=== PATIENT | female | born 1945 | race Caucasian/White ===

== ENCOUNTER 2017-01-24 12:31 | Outpatient (CLI) | payer MEDICARE, OTHER ==
--- NOTE | 2017-01-24 17:08 | Ultrasound Report ---
PELVIC ULTRASOUND: 01/24/2017 CLINICAL INDICATION: Postmenopausal spotting. TECHNIQUE: Transabdominal pelvic ultrasound performed for global evaluation. Transvaginal pelvic ul trasound performed for detailed evaluation. Real-time scanning performed and static images obtained. The uterus is retroverted, measuring 6.3 x 5.7 x 3.7 cm. The endometrium is atrophic, measuring 2 mm . No focal myometrial lesion is seen. The ovaries are unremarkable, with the right measuring 1.8 x 1.4 x 1.1 cm, and the left measuring 2.1 x 1.2 x 0.9 cm. No free fluid is present. IMPRESSION: ATROPHIC ENDOMETRIUM. NORMAL OVARIES. JOB #: [id number] EXT JOB #:
== END 2017-01-24 12:32 | disposition home or self-care (01) ==
LOC: DI 12:31
PROVIDERS: ATTEND Internal Medicine
DX: N85.8 Other specified noninflammatory disorders of uterus (principal)
CPT/HCPCS: 76830; 76856

== ENCOUNTER 2017-05-04 18:44 | Emergency (ER) | payer MEDICARE, OTHER ==
--- NOTE | 2017-05-04 20:12 | ED Physician Documentation ---
PD HPI NVD - Stated complaint Stated Complaint: ABD PX - Chief complaint Chief Complaint: Abd Pain - History obtained from History obtained from: Patient - History of Present Illness Timing - onset: Today (this morning) Timing - duration: Hours Timing - details: Abrupt onset, Still present Associated symptoms: Abdominal pain (upper abd), Loss of appetite, Other (had nausea and vomiting and several loose stools. No noted blood in vomit nor stool. ). No: Hematemesis, Melena, Hematochezia, Near syncope / syncope Improved by: Position. No: Vomiting Worsened by: Eating, Position Similar symptoms before: Diagnosis (cholecystitis and opted for not having surgery once improved.) Recently seen: Not recently seen Review of Systems Constitutional: denies: Fever Nose: denies: Rhinorrhea / runny nose, Congestion Throat: denies: Sore throat Cardiac: denies: Chest pain / pressure, Palpitations Respiratory: denies: Dyspnea, Cough GI: reports: Abdominal Pain, Nausea, Vomiting, Diarrhea. denies: Abdominal Swelling : denies: Dysuria, Frequency, Vaginal bleeding Skin: denies: Rash Musculoskeletal: denies: Back pain Neurologic: reports: Generalized weakness. denies: Focal weakness, Near syncope Endocrine: denies: Weight loss, Easy bruising / bleeding Immunocompromised: denies: Immunocompromised PD PAST MEDICAL HISTORY - Past Medical History Cardiovascular: None Respiratory: None Neuro: None Endocrine/Autoimmune: HyPOthyroidism GI: Other : None HEENT: None Psych: Depression Musculoskeletal: None Derm: None - Past Surgical History Past Surgical History: Yes General: Colonoscopy HEENT: Other - Present Medications Home Medications: Ambulatory Orders Medication Instructions Recorded Confirmed Calcium Citrate/Vitamin D3 1 each PO BID 07/29/15 05/04/17 [Calcium Citrate +Vit D3 Tablet] Citalopram [CeleXA] 40 mg PO DAILY 07/29/15 05/04/17 LORazepam [Ativan] 0.5 mg PO HS 07/29/15 05/04/17 Levothyroxine Sodium [Levoxyl] 75 mcg PO DAILY 07/29/15 05/04/17 Dicyclomine [Bentyl] 10 mg PO QID PRN #15 capsule 05/04/17 Diphenoxylate HCl/Atropine 1 each PO Q6H PRN #12 tablet 05/04/17 [Diphenoxylate-Atrop 2.5-0.025] Ondansetron Odt [Zofran] 4 mg TL Q6H PRN #15 tablet 05/04/17 - Allergies Allergies/Adverse Reactions: Allergies Allergy/AdvReac Type Severity Reaction Status Date / Time iodine Allergy Anaphylaxis Verified 05/04/17 19:06 shellfish derived Allergy Anaphylaxis Verified 05/04/17 19:06 codeine AdvReac Nausea Verified 05/04/17 19:06 tetracycline AdvReac Nausea Verified 05/04/17 19:06 - Social History Does the pt smoke?: No Smoking Status: Never smoker Does the pt drink ETOH?: Yes Does the pt have substance abuse?: No - Immunizations Immunizations are current?: No Immunizations: TDAP >10years/unknown - POLST Patient has POLST: Yes PD ED PE NORMAL - Vitals Vital signs reviewed: Yes - General General: Alert and oriented X 3, Well developed/nourished, Other (appears in pain) - HEENT HEENT: PERRL (nonicteric), Pharynx benign - Neck Neck: Supple, no meningeal sign, No adenopathy - Cardiac Cardiac: RRR, No murmur - Respiratory Respiratory: No respiratory distress, Clear bilaterally - Abdomen Abdomen: Soft, Non distended, No organomegaly, Other (tender mid abd to epigastric, not particularly in RUQ. ) - Female Female : Deferred - Rectal Rectal: Deferred - Back Back: No CVA TTP - Derm Derm: Normal color, Warm and dry - Extremities Extremities: No tenderness to palpate, Normal ROM s pain, No edema, No calf tenderness / cord - Neuro Neuro: Alert and oriented X 3, No motor deficit, Normal speech Results - Vitals Vitals: Vital Signs - 24 hr 05/04/17 05/04/17 22:41 23:59 Temperature 36.7 C Heart Rate 64 55 L Respiratory 16 16 Rate Blood Pressure 145/85 H 136/75 H O2 Saturation 93 92 Oxygen O2 Source Room air - Labs Labs: Laboratory Tests 05/04/17 05/04/17 05/04/17 21:32 21:32 21:32 WBC 9.1 RBC 4.03 L Hgb 14.0 Hct 40.2 MCV 99.8 H MCH 34.9 H MCHC 34.9 RDW 12.6 Plt Count 189 MPV 9.0 Neut # 6.9 H Lymph # 1.4 L [place] # 0.8 Eos # 0.1 Baso # 0.0 Absolute Nucleated RBC 0.00 Nucleated RBC % 0.0 Sodium 139 Potassium 3.7 Chloride 100 L Carbon Dioxide 27 Anion Gap 12.0 BUN 26 H Creatinine 0.8 Estimated GFR (MDRD) 71 L Glucose 106 H Calcium 9.0 Total Bilirubin 1.0 AST 171 H ALT 94 H Alkaline Phosphatase 78 Troponin I < 0.04 Total Protein 7.0 Albumin 4.2 Globulin 2.8 Albumin/Globulin Ratio 1.5 Lipase 33 PD MEDICAL DECISION MAKING - ED course Complexity details: reviewed results (U/S shows known stones without signs of acute cholecystitis. Other labs are good. She says she did have MRI followup to prior U/S report done at to evaluate pancreas/GB, so would have evaluated prior known pancreatic cyst like seen on U/S. ), re-evaluated patient (feeling better with meds. ), considered differential (consider gall bladder colic with known prior stones. Also sounds like gastritis or viral GE. Less likely pancreatitis.), d/w patient Departure - Departure Disposition: 01 Home, Self Care Clinical Impression: Abdominal pain Qualifiers: Abdominal location: upper abdomen, unspecified Qualified Code(s): R10.10 - Upper abdominal pain, unspecified Condition: Stable Record reviewed to determine appropriate education?: Yes Instructions: ED Abdominal Pain Unkn Cause, ED Gastroenteritis Viral Follow-Up: Bethanie Bender MD [Primary Care Provider] - Prescriptions: Dicyclomine [Bentyl] 10 mg PO QID PRN #15 capsule PRN Reason: Spasms Diphenoxylate HCl/Atropine [Diphenoxylate-Atrop 2.5-0.025] 1 each PO Q6H PRN # 12 tablet PRN Reason: Diarrhea Ondansetron Odt [Zofran] 4 mg TL Q6H PRN #15 tablet PRN Reason: Nausea / Vomiting Comments: There is no sign of inflammation or swelling of the gallbladder at this time. There are gallstones still present which was expected. There is mention of a small cyst like area at the head of the pancreas that had been present before; discussed this with your primary care to see the results of that from the MRI you have had previously. Currently unlikely to presume a viral stomach virus with the pain vomiting and diarrhea. I would expect that to improve over a day or 2. Use ondansetron if needed for nausea, Bentyl or hydrocodone for pain. Use Lomotil if needed for diarrhea if that persists. Recheck if there is any worsening of symptoms or if you are not improved over 2 days. Discharge Date/Time: 05/05/17 00:14
[2017-05-04] MEDS ORDERED: ONDANSETRON 4 MG/2 ML VIAL IVP STA (20:29)
[2017-05-04] MEDS ORDERED: MAG HYDROX/AL HYDROX/SIMETH 30 ML UDC PO STA (20:29)
[2017-05-04] MEDS ORDERED: SODIUM CHLORIDE 0.9% 1,000 ML IV ONE (20:29)
[2017-05-04] MEDS ORDERED: KETOROLAC 60 MG/2 ML VIAL IVP STA (20:30)
[2017-05-04] MEDS ORDERED: MAG HYDROX/AL HYDROX/SIMETH 30 ML UDC ONE (20:46)
[2017-05-04] MEDS ORDERED: KETOROLAC 30 MG/ML VIAL ONE (20:46)
[2017-05-04] MEDS ORDERED: ONDANSETRON 4 MG/2 ML VIAL ONE (20:46)
[2017-05-04 21:41] LABS: BASOPHILS % (AUTO) 0.3 %; EOSINOPHILS # (AUTO) 0.1 10^3/uL (0.0-0.7); EOSINOPHILS % (AUTO) 0.7 %; HCT - HEMATOCRIT 40.2 % (37.0-47.0); LYMPHOCYTES # (AUTO) 1.4 10^3/uL (1.5-3.5); LYMPHOCYTES % (AUTO) 15.4 %; MEAN CORPUSCULAR HEMOGLOBIN 34.9 pg (27.0-31.0); MEAN CORPUSCULAR HGB CONC 34.9 g/dL (32.0-36.0); MEAN CORPUSCULAR VOLUME 99.8 fL (81.0-99.0); MONOCYTES # (AUTO) 0.8 10^3/uL (0.0-1.0); MONOCYTES % (AUTO) 8.3 %; NEUTROPHILS # (AUTO) 6.9 10^3/uL (1.5-6.6); NEUTROPHILS % (AUTO) 75.3 %; RED BLOOD COUNT 4.03 10^6/uL (4.20-5.40); RED CELL DISTRIBUTION WIDTH 12.6 % (12.0-15.0); UNCORRECTED WHITE BLOOD COUNT 9.1 x10^3/uL; WHITE BLOOD COUNT 9.1 x10^3/uL (4.8-10.8)
[2017-05-04 21:57] LABS: ALBUMIN/GLOBULIN RATIO 1.5 (1.0-2.2); CREATININE 0.8 mg/dL (0.4-1.0); POTASSIUM 3.7 mmol/L (3.5-5.0)
--- NOTE | 2017-05-04 22:08 | Ultrasound Preliminary Report ---
Exam: US ABDOMEN LIMITED IMPRESSION: 1. Cholelithiasis without evidence of acute cholecystitis or bile duct obstruction. 2. Interval increase in size of pancreatic head lesion. Dedicated pancreatic MRI or CT recommended fo r further characterization. 3. Stable mild right renal pelviectasis. [facility] SITE ID: [id number]
--- NOTE | 2017-05-04 22:11 | Ultrasound Report ---
EXAM: ABDOMEN ULTRASOUND LIMITED, RUQ EXAM DATE: 05/04/2017 09:44 PM. CLINICAL HISTORY: Upper abd pain and vomiting; h/o gallstones. COMPARISON: 08/22/2015 ultrasound. TECHNIQUE: Real-time scanning was performed with static images obtained. FINDINGS: Liver: Trace perihepatic fluid. No focal liver lesions. 14.7 cm. Main portal vein flow: Hepatopetal. Gallbladder: Numerous stones seen within the gallbladder. No gallbladder wall thickening or perichole cystic fluid collections. Biliary System: CBD measures 5 mm. No intrahepatic or extrahepatic ductal dilatation. Other: Mild right renal pelviectasis. There is a 2.2 x 1.1 x 1.8 cm hypoechoic lesion within the panc reatic head, previously 1.2 x 1.0 x 1.1 cm. The pancreatic duct measures 3 mm in diameter. IMPRESSION: 1. Cholelithiasis without evidence of acute cholecystitis or bile duct obstruction. 2. Interval increase in size of pancreatic head lesion. Dedicated pancreatic MRI or CT recommended fo r further characterization. 3. Stable mild right renal pelviectasis. [facility] Referring Provider Line: [phone] SITE ID: [id number]
[2017-05-04] MEDS ORDERED: HYDROcod/ACET 5/325 Prepack 6 PO ONE ×2 (22:57→23:05)
[2017-05-04] MEDS ORDERED: ONDANSETRON ODT 4 MG Prepack 2 TL PRN (22:57)
[2017-05-04] MEDS ORDERED: ONDANSETRON ODT 4 MG Prepack 2 TL ONE (23:05)
[2017-05-05 00:01] VITALS: BP 136/75
== END 2017-05-05 00:14 | disposition home or self-care (01) ==
LOC: ED 18:44
DX: K80.20 Calculus of gallbladder without cholecystitis without obstruction (principal); R10.10 Upper abdominal pain, unspecified; E03.9 Hypothyroidism, unspecified
CPT/HCPCS: 36415; 76705; 80053; 83690; 84484; 85025; 96361; 96374; 99283; A9270

== ENCOUNTER 2017-09-09 15:52 | Outpatient (CLI) | payer MEDICARE, OTHER ==
[2017-09-09 16:09] LABS: HGB - HEMOGLOBIN 14.2 g/dL (12.0-16.0); MEAN CORPUSCULAR HEMOGLOBIN 33.9 pg (27.0-31.0); MEAN CORPUSCULAR HGB CONC 34.2 g/dL (32.0-36.0); MEAN CORPUSCULAR VOLUME 99.3 fL (81.0-99.0); MEAN PLATELET VOLUME 8.3 fL (7.9-10.8); RED BLOOD COUNT 4.17 10^6/uL (4.20-5.40); RED CELL DISTRIBUTION WIDTH 12.7 % (12.0-15.0); WHITE BLOOD COUNT 5.2 x10^3/uL (4.8-10.8)
[2017-09-09 16:24] LABS: ALBUMIN 4.6 g/dL (3.2-5.5); ALKALINE PHOSPHATASE 68 IU/L (42-121); ALT ALANINE AMINOTRANSFERASE 15 IU/L (10-60); AST ASPARTATE AMINOTRANSFERASE 19 IU/L (10-42); BILIRUBIN,TOTAL 0.4 mg/dL (0.2-1.0); TOTAL PROTEIN 7.5 g/dL (6.7-8.2)
[2017-09-09 17:12] LABS: BILIRUBIN,DIRECT < 0.1 mg/dL (0.1-0.5)
== END 2017-09-09 15:53 | disposition home or self-care (01) ==
LOC: LAB 15:52
PROVIDERS: ATTEND Internal Medicine Gastroenterology
DX: E83.110 Hereditary hemochromatosis (principal)
CPT/HCPCS: 36415; 80076; 82728

== ENCOUNTER 2017-09-12 09:00 | Outpatient (CLI) | payer MEDICARE, OTHER | END 2017-09-12 09:01 | disposition home or self-care (01) | LOC: LAB.R 09:00 | PROVIDERS: ATTEND Internal Medicine | DX: R19.7 Diarrhea, unspecified (principal) | CPT/HCPCS: 81599; 83630; 87045; 87046; 87177; 87209; 87329; 87493 ==

== ENCOUNTER 2017-10-31 08:00 | Outpatient (CLI) | payer MEDICARE, OTHER | END 2017-10-31 08:01 | disposition home or self-care (01) | LOC: LAB.R 08:00 | PROVIDERS: ATTEND Internal Medicine | DX: R19.7 Diarrhea, unspecified (principal); A07.3 Isosporiasis | CPT/HCPCS: 87177; 87209 ==

== ENCOUNTER 2018-02-21 05:00 | Inpatient (IN) | payer MEDICARE, OTHER ==
[2018-02-21] MEDS ORDERED: ONDANSETRON 4 MG/2 ML VIAL IVP STA (05:09)
[2018-02-21] MEDS ORDERED: SODIUM CHLORIDE 0.9% 1,000 ML IV ONE (05:09)
[2018-02-21] MEDS ORDERED: MORPHINE 2 MG/ML CARPUJECT IVP STA (05:09)
--- NOTE | 2018-02-21 05:15 | ED Physician Documentation ---
PD HPI NVD - Stated complaint Stated Complaint: LOW ABD PAIN - Chief complaint Chief Complaint: Abd Pain - History obtained from History obtained from: Patient, Family - History of Present Illness Timing - onset: How many days ago (2) Timing - details: Gradual onset, Still present Associated symptoms: Abdominal pain. No: Fever Similar symptoms before: No diagnosis Recently seen: Not recently seen - Additonal information Additional information: Patient is a 72 year old female with a history of hemochromatosis who is presenting to the emergency department for nausea, vomiting, diarrhea and abdominal pain. Patient states that the symptoms have been going on for the last couple of days and have become progressively worse. Review of Systems Ten Systems: 10 systems reviewed and negative Constitutional: reports: Chills Cardiac: denies: Chest pain / pressure GI: reports: Abdominal Pain, Nausea, Vomiting, Diarrhea : denies: Dysuria, Frequency Neurologic: denies: Generalized weakness, Focal weakness Immunocompromised: denies: Immunocompromised PD PAST MEDICAL HISTORY - Past Medical History Cardiovascular: None Respiratory: None Endocrine/Autoimmune: HyPOthyroidism GI: Other : None HEENT: None Psych: Depression Musculoskeletal: None Derm: None - Past Surgical History Past Surgical History: Yes General: Colonoscopy HEENT: Other - Present Medications Home Medications: Ambulatory Orders Medication Instructions Recorded Confirmed Calcium Citrate/Vitamin D3 1 each PO BID 07/29/15 05/04/17 [Calcium Citrate +Vit D3 Tablet] Citalopram [CeleXA] 40 mg PO DAILY 07/29/15 05/04/17 LORazepam [Ativan] 0.5 mg PO HS 07/29/15 05/04/17 Levothyroxine Sodium [Levoxyl] 75 mcg PO DAILY 07/29/15 05/04/17 - Allergies Allergies/Adverse Reactions: Allergies Allergy/AdvReac Type Severity Reaction Status Date / Time iodine Allergy Anaphylaxis Verified 02/21/18 05:10 shellfish derived Allergy Anaphylaxis Verified 02/21/18 05:10 codeine AdvReac Nausea Verified 02/21/18 05:10 tetracycline AdvReac Nausea Verified 02/21/18 05:10 - Social History Does the pt smoke?: No Smoking Status: Never smoker Does the pt drink ETOH?: Yes Does the pt have substance abuse?: No - Immunizations Immunizations are current?: No Immunizations: TDAP >10years/unknown - POLST Patient has POLST: Yes PD ED PE NORMAL - Vitals Vital signs reviewed: Yes - General General: Alert and oriented X 3 - HEENT HEENT: Atraumatic - Respiratory Respiratory: No respiratory distress - Abdomen Abdomen: Soft - Derm Derm: Normal color, Warm and dry - Extremities Extremities: No deformity - Neuro Neuro: Alert and oriented X 3, No motor deficit, Normal speech Eye Opening: Spontaneous PD ED PE EXPANDED - General General: Alert, In Pain - HEENT HEENT: Dry mucous membranes - Abdomen Abdomen: Tender to palpation, Guarding, RLQ Results - Vitals Vitals: Vital Signs - 24 hr 02/21/18 02/21/18 02/21/18 05:04 05:38 06:10 Temperature 37.2 C Heart Rate 93 66 63 Respiratory 20 22 29 H Rate Blood Pressure 149/95 H 134/81 H 129/72 O2 Saturation 97 91 L 96 02/21/18 06:34 Temperature Heart Rate 60 Respiratory 22 Rate Blood Pressure 120/66 O2 Saturation 97 Oxygen O2 Source Nasal cannula Oxygen Flow Rate 2 - Labs Labs: Laboratory Tests 02/21/18 02/21/18 06:07 06:07 WBC 8.8 RBC 4.08 L Hgb 14.4 Hct 41.4 MCV 101.5 H MCH 35.3 H MCHC 34.7 RDW 12.6 Plt Count 176 MPV 9.0 Neut # (Auto) 7.3 H Lymph # (Auto) 0.8 L [place] # (Auto) 0.6 Eos # (Auto) 0.0 Baso # (Auto) 0.0 Absolute Nucleated RBC 0.00 Nucleated RBC % 0.0 Sodium 131 L Potassium 3.7 Chloride 100 L Carbon Dioxide 24 Anion Gap 7.0 BUN 14 Creatinine 0.8 Estimated GFR (MDRD) 71 L Glucose 133 H Calcium 8.7 Total Bilirubin 0.9 AST 27 ALT 18 Alkaline Phosphatase 64 Total Protein 7.1 Albumin 4.3 Globulin 2.8 Albumin/Globulin Ratio 1.5 Lipase 24 - Rads (name of study) ct abd pelvis Radiology: Final report received (acute appendicitis ) PD MEDICAL DECISION MAKING - ED course Complexity details: reviewed old records, reviewed results, re-evaluated patient, considered differential, d/w patient, d/w family, d/w hadoop consultant ED course: patient was seen and examined at bedside. IV access was gained and labs were drawn. patient was treated with morphine, zofran and ns bolus. imaging was ordered. when patient returned from imaging patient was still in pain and treated with dilaudid 1mg. Patient's CT revealed acute appendicits. tutoring clinician surgeon, Dr. Hawkins was contacted and the case was discussed with him. He stated he would take the patient to the or this morning. patient was started on zofran and pain was well controlled. - Sepsis Event Vital Signs: Vital Signs - 24 hr 02/21/18 02/21/18 02/21/18 05:04 05:38 06:10 Temperature 37.2 C Heart Rate 93 66 63 Respiratory 20 22 29 H Rate Blood Pressure 149/95 H 134/81 H 129/72 O2 Saturation 97 91 L 96 02/21/18 06:34 Temperature Heart Rate 60 Respiratory 22 Rate Blood Pressure 120/66 O2 Saturation 97 Oxygen O2 Source Nasal cannula Oxygen Flow Rate 2 Departure - Departure Disposition: ED Transfer to [facility] Clinical Impression: Appendicitis Condition: Stable
[2018-02-21 06:13] LABS: BASOPHILS % (AUTO) 0.3 %; EOSINOPHILS % (AUTO) 0.1 %; HGB - HEMOGLOBIN 14.4 g/dL (12.0-16.0); LYMPHOCYTES # (AUTO) 0.8 10^3/uL (1.5-3.5); LYMPHOCYTES % (AUTO) 9.4 %; MEAN CORPUSCULAR HEMOGLOBIN 35.3 pg (27.0-31.0); MEAN CORPUSCULAR HGB CONC 34.7 g/dL (32.0-36.0); MEAN CORPUSCULAR VOLUME 101.5 fL (81.0-99.0); MONOCYTES # (AUTO) 0.6 10^3/uL (0.0-1.0); MONOCYTES % (AUTO) 6.4 %; NEUTROPHILS # (AUTO) 7.3 10^3/uL (1.5-6.6); NEUTROPHILS % (AUTO) 83.8 %; PLT - PLATELET COUNT 176 10^3/uL (130-450); RED BLOOD COUNT 4.08 10^6/uL (4.20-5.40); RED CELL DISTRIBUTION WIDTH 12.6 % (12.0-15.0); WHITE BLOOD COUNT 8.8 x10^3/uL (4.8-10.8)
--- NOTE | 2018-02-21 06:15 | CT Report ---
Reason: abd pain, vomiting, contrast allergy Procedure Date: 02/21/2018 Accession Number: [id number] / [id number] Procedure: CT - Abdomen/Pelvis W/O CPT Code: FULL RESULT: EXAM: CT ABDOMEN AND PELVIS EXAM DATE: 02/21/2018 05:57 AM. CLINICAL HISTORY: Abdominal pain, vomiting, contrast allergy. COMPARISONS: None. TECHNIQUE: Routine helical CT imaging was performed through the abdomen and pelvis. IV contrast: None. Enteric contrast: No. Reconstructions: Coronal and sagittal. In accordance with CT protocol optimization, one or more of the following dose reduction techniques were utilized for this exam: automated exposure control, adjustment of mA and/or KV based on patient size, or use of iterative reconstructive technique. FINDINGS: Lung Bases: Bibasilar atelectasis or infiltrate. Small hiatal hernia. Trace pericardial effusion. Liver: No focal lesion identified on this noncontrast examination. Gallbladder/Bile Ducts: Status post cholecystectomy. Spleen: Normal. Pancreas: Normal. Adrenal Glands: Normal. Kidneys: Normal. No masses or hydronephrosis. Peritoneal Cavity/Bowel: Trace amount of free fluid in the pelvis. No bowel obstruction seen. No diverticulitis. No free air. No lymphadenopathy. Dilated inflamed appendix measuring 12 mm, with appendicolith. No periappendiceal abscess seen. Pelvic Organs: Normal. The bladder and visualized pelvic organs are within normal limits. Vasculature: Mild atherosclerosis. No aortic aneurysm. Bones: Osteopenia. Grade 1 degenerative spondylolisthesis at L4-L5. Other: None. IMPRESSION: 1. Appendicitis measuring 12 mm in diameter. No abscess seen. 2. Bibasilar atelectasis or infiltrate with small hiatal hernia and trace pericardial effusion. [facility]
[2018-02-21 06:24] LABS: ALBUMIN 4.3 g/dL (3.2-5.5); ALBUMIN/GLOBULIN RATIO 1.5 (1.0-2.2); BILIRUBIN,TOTAL 0.9 mg/dL (0.2-1.0); CALCIUM 8.7 mg/dL (8.5-10.3); CREATININE 0.8 mg/dL (0.4-1.0); TOTAL PROTEIN 7.1 g/dL (6.7-8.2)
[2018-02-21] MEDS ORDERED: HYDROmorphone 1 MG/ML CARPUJECT IVP STA (06:27)
[2018-02-21] MEDS ORDERED: PIPERACILLIN/TAZOBACTAM 3.375 GM in SODIUM CHLORIDE 0.9% MINIBAG 100 ML IV STA (06:47)
[2018-02-21] MEDS ORDERED: BUPIVACAINE 0.5% PF 30 ML VIAL ONE (08:02)
[2018-02-21 08:11] LABS: BILIRUBIN,URINE NEGATIVE (NEGATIVE); GLUCOSE, URINE (UA) NEGATIVE (NEGATIVE); KETONES,URINE (UA) NEGATIVE (NEGATIVE); LEUKOCYTE ESTERASE, URINE NEGATIVE (NEGATIVE); NITRITE,URINE NEGATIVE (NEGATIVE); OCCULT BLOOD,URINE NEGATIVE (NEGATIVE); PH,URINE 5.5 PH (5.0-7.5); PROTEIN,URINE NEGATIVE (NEGATIVE); UROBILINOGEN,URINE 0.2 (NORMAL) E.U./dL (NORMAL)
[2018-02-21 08:16] LABS: CLARITY,URINE CLEAR (CLEAR)
--- NOTE | 2018-02-21 08:28 | HISTORY & PHYSICAL EXAMINATION ---
DATE OF SERVICE: 02/21/2018 Physician: Scout Mccormick MD HISTORY OF PRESENT ILLNESS: A 72-year-old, white, female patient with right lower quadrant abdominal pain for about a day. She comes to the emergency room, where she was evaluated and found to have ac [place] appendicitis on physical examination and on CT scanning. She has a fecalith and an enlarged appe ndix. It was a noncontrasted CT because of an ALLERGY TO DYE. She has been appraised of the situati on and will have an open appendectomy. She understands and agrees. She has no sign of an abscess on CT scanning. Her white count is normal. PAST MEDICAL HISTORY: She has had a laparoscopic cholecystectomy within the past year and she has velasquez d some kind of sinus surgery, also about a year ago. No other surgical procedures. Denies diabetes, heart disease or hypertension. Takes no major medications at home. ALLERGIES: SHE IS ALLERGIC TO IV CONTRAST. REVIEW OF SYSTEMS CARDIOPULMONARY: Negative for exertional chest pain or unusual shortness of breath. GASTROINTESTINAL: As in HPI. GENITOURINARY: Negative. GYNECOLOGIC: Negative NEUROLOGIC: No strokes or seizures. PHYSICAL EXAMINATION VITAL SIGNS: She is afebrile at the moment. Blood pressure 138/72, heart rate in the 80s and regula r. EARS, NOSE, AND THROAT: Normal. NECK: No adenopathy. LUNGS: Clear with no rales or wheezes. HEART: Regular rate and rhythm. No murmur. ABDOMEN: Slightly distended and exquisitely tender in the right lower quadrant with positive rebound . She has a positive Rovsing sign. Remaining physical is unremarkable. DIAGNOSIS: Acute appendicitis, uncomplicated. PLAN: Appendectomy. TD: 02/21/2018 07:49
--- NOTE | 2018-02-21 08:59 | ANESTHESIA ---
Pre-Anesthesia VS, & Labs - Diagnosis appendicitis - Procedure appendectomy Vital Signs: Temp Pulse Resp BP Pulse Ox 37.0 C 78 16 118/68 96 02/21/18 07:03 02/21/18 07:43 02/21/18 07:43 02/21/18 07:43 02/21/18 07:43 Height 5 ft 2.5 in Weight (kg) 70.307 kg Body Mass Index 27.8 - NPO >8 hours - Is Patient ?: Not Applicable - Lab Results Fish Bones: 02/21/18 06:07 02/21/18 06:07 Home Medications and Allergies Home Medications: Ambulatory Orders Medication Instructions Recorded Confirmed Calcium Citrate/Vitamin D3 1 each PO BID 07/29/15 05/04/17 [Calcium Citrate +Vit D3 Tablet] Citalopram [CeleXA] 40 mg PO DAILY 07/29/15 05/04/17 LORazepam [Ativan] 0.5 mg PO HS 07/29/15 05/04/17 Levothyroxine Sodium [Levoxyl] 75 mcg PO DAILY 07/29/15 05/04/17 Allergies/Adverse Reactions: Allergies Allergy/AdvReac Type Severity Reaction Status Date / Time iodine Allergy Anaphylaxis Verified 02/21/18 05:10 shellfish derived Allergy Anaphylaxis Verified 02/21/18 05:10 codeine AdvReac Nausea Verified 02/21/18 05:10 tetracycline AdvReac Nausea Verified 02/21/18 05:10 Anes History & Medical History - Anesthetic History Anesthesia Complications: reports: No previous complications Family history of Anesthesia Complications: Denies Family history of Malignant Hyperthermia: Denies - Medical History Cardiovascular: reports: None Pulmonary: reports: None Gastrointestinal: reports: Other Urinary: reports: None Musculoskeletal: reports: None Endocrine/Autoimmune: reports: HyPOthyroidism Skin: reports: None Smoking Status: Never smoker Other Past Medical History: Hemocromatosis - Surgical History General: Colonoscopy Eyes Ears Nose Throat (EENT): Other Exam General: Alert, Oriented x3, Cooperative, No acute distress Dental: Other (implants, veneers) Mouth Openin Fingerbreadth Neck Mobility: Normal Mallampati classification: II Thyromental Distance: greater than 6 cm Respiratory: Lungs clear, Normal breath sounds, No respiratory distress, No accessory muscle use Cardiovascular: Regular rate, Normal S1, Normal S2, No murmurs Mental/Cognitive Status: Alert/Oriented X3, Normal for patient Cognitive Status: Within normal limits Plan Anesthesia Type: General Consent for Procedure(s) Verified and Reviewed: Yes Code Status: Attempt Resuscitation ASA classification: 2-Mild systemic disease Is this case an emergency?: No
[2018-02-21] MEDS ORDERED: LIDOCAINE-MPF 2% 5 ML VIAL IM ONE (10:15)
[2018-02-21] MEDS ORDERED: KETOROLAC 30 MG/ML VIAL IVP ONE (10:15)
[2018-02-21] MEDS ORDERED: ONDANSETRON 4 MG/2 ML VIAL IVP ONE (10:15)
[2018-02-21] MEDS ORDERED: ACETAMINOPHEN 1,000 MG/100 ML 100 ML IV ONE (10:15)
[2018-02-21] MEDS ORDERED: PROPOFOL 200 MG/20 ML VIAL IVP ONE (10:15)
[2018-02-21] MEDS ORDERED: DEXAMETHASONE 4 MG/ML VIAL IVP ONE (10:15)
[2018-02-21] MEDS ORDERED: MIDAZOLAM 2 MG/2 ML VIAL IVP ONE (10:15)
[2018-02-21] MEDS ORDERED: ROCURONIUM 50 MG/5 ML VIAL IVP ONE (10:15)
[2018-02-21] MEDS ORDERED: NEOSTIGMINE 1 MG/1 ML 10 ML MDV IVP ONE (10:15)
[2018-02-21] MEDS ORDERED: GLYCOPYRROLATE 1 MG/5 ML VIAL IVP ONE (10:15)
[2018-02-21] MEDS ORDERED: fentaNYL 250 MCG/5 ML VIAL IVP ONE (10:15)
[2018-02-21] MEDS ORDERED: BUPIVACAINE 0.5% PF 30 ML VIAL INFIL ONE (10:32)
[2018-02-21] MEDS ORDERED: LACTATED RINGERS 1,000 ML IV ONE ×3 (10:34→12:26)
[2018-02-21] MEDS ORDERED: SODIUM CHLORIDE FLUSH 0.9% 10 ML SYRINGE IVP PRN (10:44)
[2018-02-21] MEDS ORDERED: ACETAMINOPHEN 1,000 MG/100 ML 100 ML IV PRN (10:44)
[2018-02-21] MEDS: PIPERACILLIN/TAZOBACTAM 3.375 GM in SODIUM CHLORIDE 0.9% MINIBAG 100 ML IV SCH ×3 (11:52→18:53)
--- NOTE | 2018-02-21 13:51 | OPERATIVE REPORT ---
DATE OF SERVICE: 02/21/2018 Physician: Scout Mccormick MD PREOPERATIVE DIAGNOSIS: Acute appendicitis. POSTOPERATIVE DIAGNOSIS: Ruptured appendix with pelvic peritonitis. NAME OF PROCEDURE: Open appendectomy. SURGEON: Huey Mccormick MD. ANESTHESIA: General endotracheal. PROCEDURE: The patient was preoperatively identified during surgical pause under general endotrachea l anesthesia, prepped and draped in a sterile fashion, exposing the right lower quadrant of the abdom en. A Dwaine-Zach incision was made over McBurney's point. The oblique muscles split in the gridiro n fashion peritoneum, elevated, and entered, so as to avoid injury to the underlying structures. The patient had pelvic peritonitis with turbid and cloudy peritoneal fluid around the cecum. This was c ultured for aerobes and anaerobes. The cecum was rotated in the wound. The appendix was elevated. It was ruptured, and there was purulence noted around the mesoappendix. This was also cultured. The re was fibrin over the small bowel. The mesoappendix was divided between clamps. The appendiceal ve ssels were ligated with 2-0 Vicryl. The base of the appendix was stapled shut with a TA 30 stapler a nd the appendix then excised. The staple line in the cecum was secure and not bleeding. The cecum r otated back into the wound, back into the anatomic position, and the pelvis was then irrigated with s everal liters of sterile saline and aspirated dry until clear. The peritoneum was closed after a 10- mm Jorge drain was placed in the depths of the pelvis. Peritoneal closure was with 2-0 Vicryl. A Jorge-Desouza drain was brought out through the angle of the wound laterally. The fascia closed with 0 Vicryl. The subcutaneous irrigated with saline. The skin loosely stapled. The Jorge-Desouza kimberly in was sutured to the skin with a fine nylon. Sterile dressings applied. The procedure was very wel l tolerated. TD: 02/21/2018 11:03
[2018-02-21] MEDS: SODIUM CHLORIDE FLUSH 0.9% 10 ML SYRINGE IVP SCH (18:56)
[2018-02-21] MEDS: D5.45NS W/20 MEQ KCL 1,000 ML IV SCH (18:59)
[2018-02-21] MEDS: HYDROcod/ACETAM 5/325 MG TABLET PO PRN (19:34)
[2018-02-21] MEDS: FAMOTIDINE 20 MG TABLET PO SCH (21:10)
[2018-02-21] MEDS: LORazepam 0.5 MG TABLET PO PRN (21:11)
[2018-02-22] MEDS ORDERED: BENZOCAINE/MENTHOL LOZENGE MM PRN
[2018-02-22] MEDS: PIPERACILLIN/TAZOBACTAM 3.375 GM in SODIUM CHLORIDE 0.9% MINIBAG 100 ML IV SCH ×5 (00:01→23:26)
[2018-02-22] MEDS: HYDROcod/ACETAM 5/325 MG TABLET PO PRN ×4 (02:50→20:40)
[2018-02-22] MEDS: SODIUM CHLORIDE FLUSH 0.9% 10 ML SYRINGE IVP SCH ×3 (03:52→16:21)
[2018-02-22] MEDS: D5.45NS W/20 MEQ KCL 1,000 ML IV SCH ×3 (05:54→23:26)
[2018-02-22] MEDS: KETOROLAC 15 MG/ML VIAL IVP PRN ×2 (05:57→16:21)
[2018-02-22] MEDS: LEVOTHYROXINE 75 MCG TABLET PO SCH (06:05)
[2018-02-22] MEDS: POLYETHYLENE GLYCOL 3350 17 GM PACKET PO SCH (08:35)
[2018-02-22] MEDS: FAMOTIDINE 20 MG TABLET PO SCH ×2 (08:35→18:34)
[2018-02-22] MEDS: CITALOPRAM 10 MG TABLET PO SCH (08:35)
--- NOTE | 2018-02-22 11:48 | PROVIDER PROGRESS NOTE ---
Subjective - General Admit Date: 02/21/18 Procedure Date: 02/21/18 Post Op Days: 1 Procedure Performed: Open appendectomy with cultures - Review of Systems Wound/Incisions: positive: Healing well (Stapled widely with drain in place draining serosanguinous fluid.) Drain Type: Laci Drain Output Description: Serosanguinous Approximate mls Output: 90 General: positive: No symptoms HEENT: positive: No symptoms Pulmonary: positive: No symptoms Cardiovascular: positive: No symptoms Genitourinary: positive: No symptoms, Pain (Minimal.) Skin: positive: No symptoms Psychiatric: positive: No symptoms Objective - Patient Data Reviewed Vital Signs: Yes Vital Signs: Vital Signs x48h Temp Pulse Resp BP Pulse Ox 02/22/18 11:43 37.1 C 58 L 18 123/80 94 Weight: Weight 02/20/18 02/21/18 02/22/18 23:59 23:59 23:59 Weight (kg) 70.307 kg Intake & Output: Intake and Output Totals x24h 02/20/18 02/21/18 02/22/18 23:59 23:59 23:59 Intake Total 2068 1500 Output Total 670 90 Balance 1398 1410 - Lab Results Lab Results: 02/21/18 06:07 02/21/18 06:07 - Current Medications Current Medications: Current Medications Generic Name Dose Route Start Last Admin Trade Name Freq PRN Reason Stop Dose Admin Hydrocodone Bitart/Acetaminophen 1 tab 02/21/18 10:44 02/22/18 06:56 [place] 5/325 PO 1 tab Q4HR PRN Administration PAIN Citalopram Hydrobromide 40 mg 02/22/18 09:00 02/22/18 08:35 Celexa PO 40 mg DAILY ANGY Administration Famotidine 20 mg 02/21/18 21:00 02/22/18 08:35 Pepcid PO 20 mg BID ANGY Administration Piperacillin Sod/Tazobactam 100 mls @ 200 mls/hr 02/21/18 12:00 02/22/18 06:30 Sod 3.375 gm/ Sodium Chloride IV Infused Q6HR ANGY Infusion Potassium Chloride/Dextrose/Sod Cl 1,000 mls @ 100 mls/hr 02/21/18 19:00 02/22/18 05:54 D5.45ns W/20 Meq Kcl IV 100 mls/hr .Q10H ANGY Administration Ketorolac Tromethamine 15 mg 02/21/18 10:44 02/22/18 05:57 Toradol Inj (15mg) IVP 02/26/18 10:43 15 mg Q6H PRN Administration PAIN Levothyroxine Sodium 75 mcg 02/22/18 07:00 02/22/18 06:05 Synthroid PO 75 mcg QDAC ANGY Administration Lorazepam 0.5 mg 02/21/18 21:00 02/21/18 21:11 Ativan PO 0.5 mg QPM PRN Administration Anxiety Polyethylene Glycol 17 gm 02/22/18 09:00 02/22/18 08:35 Miralax PO Not Given DAILY ANGY Sodium Chloride 10 ml 02/21/18 17:00 02/22/18 08:36 Normal Saline Flush 0.9% IVP Not Given 0100,0900,1700 ANGY Throat Lozenges 1 lozenge 02/22/18 00:00 02/22/18 00:11 Cepacol MM 1 lozenge Q2HR PRN Administration Throat pain - Physical Exam Wound/Incisions: positive: Healing well (Widely spaced isrrael.). negative: Drainage, Erythema General Appearance: positive: No acute distress Eyes Bilateral: positive: No lid inflammation, Conjunctivae nml, No scleral icterus ENT: positive: No signs of dehydration Neck: positive: Trachea midline Respiratory: positive: Chest non-tender, No respiratory distress, Breath sounds nml Cardiovascular: positive: Regular rate & rhythm Abdomen: positive: Tenderness (Minimal.) Skin: positive: Color nml Extremities: positive: Nml appearance Neurologic/Psychiatric: positive: Oriented x3 ABX Reporting Has patient been on IV antibiotics over the past 48 hours?: Yes Impression/Plan - Problem List Problem List: D1 s/p open appeendectomy for ruptured appendicitis 1) FEN Advance to general diet. Minimize IVF. 2) ID Patient currently receiving Zosyn for ruptured appendicitis. Appropriate coverage. No CBC or CMP ordered for today. No fever. Consider switch to oral agents tomorrow AM. 3) DVT Continued prophylaxis. Patient to walk as much as possible.
[2018-02-22] MEDS: ONDANSETRON 4 MG/2 ML VIAL IVP PRN (16:21)
[2018-02-22] MEDS: LORazepam 0.5 MG TABLET PO PRN (20:40)
[2018-02-23] MEDS: SODIUM CHLORIDE FLUSH 0.9% 10 ML SYRINGE IVP SCH ×3 (00:23→16:51)
[2018-02-23] MEDS: HYDROcod/ACETAM 5/325 MG TABLET PO PRN ×2 (00:23→06:53)
[2018-02-23] MEDS: PIPERACILLIN/TAZOBACTAM 3.375 GM in SODIUM CHLORIDE 0.9% MINIBAG 100 ML IV SCH ×3 (06:16→17:40)
[2018-02-23] MEDS: ONDANSETRON 4 MG/2 ML VIAL IVP PRN ×2 (06:17→21:33)
[2018-02-23] MEDS: LEVOTHYROXINE 75 MCG TABLET PO SCH (06:17)
[2018-02-23 07:04] LABS: BASOPHILS # (AUTO) 0.1 10^3/uL (0.0-0.1); BASOPHILS % (AUTO) 0.6 %; EOSINOPHILS # (AUTO) 0.3 10^3/uL (0.0-0.7); EOSINOPHILS % (AUTO) 3.2 %; HGB - HEMOGLOBIN 13.4 g/dL (12.0-16.0); LYMPHOCYTES # (AUTO) 2.2 10^3/uL (1.5-3.5); LYMPHOCYTES % (AUTO) 23.9 %; MEAN CORPUSCULAR HEMOGLOBIN 35.2 pg (27.0-31.0); MEAN CORPUSCULAR HGB CONC 34.3 g/dL (32.0-36.0); MEAN CORPUSCULAR VOLUME 102.5 fL (81.0-99.0); MEAN PLATELET VOLUME 8.9 fL (7.9-10.8); MONOCYTES # (AUTO) 0.6 10^3/uL (0.0-1.0); MONOCYTES % (AUTO) 6.2 %; NEUTROPHILS % (AUTO) 66.1 %; PLT - PLATELET COUNT 189 10^3/uL (130-450); RED BLOOD COUNT 3.81 10^6/uL (4.20-5.40); RED CELL DISTRIBUTION WIDTH 12.8 % (12.0-15.0)
[2018-02-23] MEDS: CITALOPRAM 10 MG TABLET PO SCH (08:37)
[2018-02-23] MEDS: FAMOTIDINE 20 MG TABLET PO SCH ×2 (08:37→21:34)
[2018-02-23] MEDS: POLYETHYLENE GLYCOL 3350 17 GM PACKET PO SCH ×2 (08:39→19:49)
--- NOTE | 2018-02-23 09:08 | PROVIDER PROGRESS NOTE ---
Subjective - General Admit Date: 02/21/18 Procedure Date: 02/21/18 Post Op Days: 2 Procedure Performed: Open appendectomy with cultures - Review of Systems Wound/Incisions: positive: Healing well (Widely spaced [place].). negative: Drainage, Erythema Drain Type: Laci Drain Output Description: Serous Approximate mls Output: 327 General: positive: No symptoms HEENT: positive: No symptoms Pulmonary: positive: No symptoms Cardiovascular: positive: No symptoms Genitourinary: positive: No symptoms, Pain (Minimal.) Skin: positive: No symptoms Psychiatric: positive: No symptoms Objective - Patient Data Reviewed Vital Signs: Yes Vital Signs: Vital Signs x48h Temp Pulse Resp BP Pulse Ox 02/23/18 08:17 36.9 C 59 L 16 135/81 H 95 Weight: Weight 02/21/18 02/22/18 02/23/18 23:59 23:59 23:59 Weight (kg) 70.307 kg Intake & Output: Intake and Output Totals x24h 02/21/18 02/22/18 02/23/18 23:59 23:59 23:59 Intake Total 2068 4014.167 250 Output Total 670 375 327 Balance 1398 3639.167 -77 - Lab Results Lab Results: 02/23/18 06:45 02/21/18 06:07 Other Lab Results: Lab Results x24hrs 02/23/18 Range/Units 06:45 WBC 9.0 (4.8-10.8) x10^3/uL RBC 3.81 L (4.20-5.40) 10^6/uL Hgb 13.4 (12.0-16.0) g/dL Hct 39.0 (37.0-47.0) % MCV 102.5 H (81.0-99.0) fL MCH 35.2 H (27.0-31.0) pg MCHC 34.3 (32.0-36.0) g/dL RDW 12.8 (12.0-15.0) % Plt Count 189 (130-450) 10^3/uL MPV 8.9 (7.9-10.8) fL Neut # (Auto) 6.0 (1.5-6.6) 10^3/uL Lymph # (Auto) 2.2 (1.5-3.5) 10^3/uL [place] # (Auto) 0.6 (0.0-1.0) 10^3/uL Eos # (Auto) 0.3 (0.0-0.7) 10^3/uL Baso # (Auto) 0.1 (0.0-0.1) 10^3/uL Absolute Nucleated RBC 0.01 x10^3/uL Nucleated RBC % 0.1 /100WBC - Current Medications Current Medications: Current Medications Generic Name Dose Route Start Last Admin Trade Name Freq PRN Reason Stop Dose Admin Hydrocodone Bitart/Acetaminophen 1 tab 02/21/18 10:44 02/23/18 06:53 [place] 5/325 PO 1 tab Q4HR PRN Administration PAIN Citalopram Hydrobromide 40 mg 02/22/18 09:00 02/23/18 08:37 Celexa PO 40 mg DAILY ANGY Administration Famotidine 20 mg 02/21/18 21:00 02/23/18 08:37 Pepcid PO 20 mg BID ANGY Administration Piperacillin Sod/Tazobactam 100 mls @ 200 mls/hr 02/21/18 12:00 02/23/18 06:16 Sod 3.375 gm/ Sodium Chloride IV 200 mls/hr Q6HR ANGY Administration Potassium Chloride/Dextrose/Sod Cl 1,000 mls @ 50 mls/hr 02/22/18 11:55 02/22/18 23:26 D5.45ns W/20 Meq Kcl IV 50 mls/hr .Q20H ANGY Administration Ketorolac Tromethamine 15 mg 02/21/18 10:44 02/22/18 16:21 Toradol Inj (15mg) IVP 02/26/18 10:43 15 mg Q6H PRN Administration PAIN Levothyroxine Sodium 75 mcg 02/22/18 07:00 02/23/18 06:17 Synthroid PO 75 mcg QDAC ANGY Administration Lorazepam 0.5 mg 02/21/18 21:00 02/22/18 20:40 Ativan PO 0.5 mg QPM PRN Administration Anxiety Ondansetron HCl 4 mg 02/21/18 10:44 02/23/18 06:17 Zofran Inj IVP 4 mg Q6H PRN Administration Nausea / Vomiting Polyethylene Glycol 17 gm 02/22/18 09:00 02/23/18 08:39 Miralax PO Not Given DAILY ANGY Sodium Chloride 10 ml 02/21/18 17:00 02/23/18 08:40 Normal Saline Flush 0.9% IVP Not Given 0100,0900,1700 NAGY Sodium Chloride 10 ml 02/21/18 10:44 02/23/18 06:17 Normal Saline Flush 0.9% IVP 10 ml PRN PRN Administration NEEDED PER PROVIDER ORDERS Throat Lozenges 1 lozenge 02/22/18 00:00 02/22/18 00:11 Cepacol MM 1 lozenge Q2HR PRN Administration Throat pain - Physical Exam General Appearance: positive: No acute distress Eyes Bilateral: positive: No lid inflammation, Conjunctivae nml, No scleral icterus ENT: positive: No signs of dehydration Neck: positive: Trachea midline Respiratory: positive: Chest non-tender, No respiratory distress, Breath sounds nml Cardiovascular: positive: Regular rate & rhythm Abdomen: positive: Nml bowel sounds, No distention Skin: positive: Color nml Extremities: positive: Nml appearance Neurologic/Psychiatric: positive: Oriented x3 Impression/Plan - Problem List Problem List: D2 s/p open appeendectomy for ruptured appendicitis 1) FEN Advance to general diet. Minimize IVF. 2) ID Patient currently receiving Zosyn for ruptured appendicitis. Appropriate coverage. CBC shows no elevated WBC and no left shift. Switch to oral antibiotics. 3) DVT Continued prophylaxis. Patient to walk as much as possible. 4) Pain Oral agents only.
[2018-02-23] MEDS: SACCHAROMYCES BOULARDII 250 MG CAPSULE PO SCH (17:40)
[2018-02-23] MEDS: IBUPROFEN 600 MG TABLET PO PRN (17:42)
[2018-02-23] MEDS: LORazepam 0.5 MG TABLET PO PRN (21:33)
[2018-02-23] MEDS: D5.45NS W/20 MEQ KCL 1,000 ML IV SCH (21:40)
[2018-02-23] MEDS: CIPROFLOXACIN 250 MG TABLET PO SCH (21:41)
[2018-02-24] MEDS: SODIUM CHLORIDE FLUSH 0.9% 10 ML SYRINGE IVP SCH ×2 (02:02→08:19)
[2018-02-24] MEDS: LEVOTHYROXINE 75 MCG TABLET PO SCH (06:19)
[2018-02-24] MEDS: metroNIDAZOLE 250 MG TABLET PO SCH ×2 (06:22→13:08)
[2018-02-24] MEDS: IBUPROFEN 600 MG TABLET PO PRN (08:18)
[2018-02-24] MEDS: SACCHAROMYCES BOULARDII 250 MG CAPSULE PO SCH ×2 (08:18→18:25)
[2018-02-24] MEDS: CITALOPRAM 10 MG TABLET PO SCH (08:19)
[2018-02-24] MEDS: CIPROFLOXACIN 250 MG TABLET PO SCH (08:19)
[2018-02-24] MEDS: FAMOTIDINE 20 MG TABLET PO SCH (08:19)
[2018-02-24] MEDS: HYDROcod/ACETAM 5/325 MG TABLET PO PRN ×2 (12:28→18:21)
--- NOTE | 2018-02-24 18:55 | Discharge Plan ---
Discharge Plan Disposition: Home, Self Care Condition: Good Prescriptions: HYDROcod/ACETAM 5/325 [[place] 5/325] 1 tab PO Q4HR PRN #10 tablet PRN Reason: Pain Ciprofloxacin [Cipro] 250 mg PO BID #14 tablet Diet: Regular Activity Restrictions: No Restrictions Shower Restrictions: No Driving Restrictions: Yes (Until seen in office.) Weight Bearing: Full Weight Additional Instructions or Follow Up instructions: Call me with any surgical questions or concerns No Smoking: If you smoke, Please STOP! Call for help. Follow-up with: Bethanie Bender MD [Primary Care Provider] - Zia Oliva MD [Provider Admit Priv/Credential] -
--- NOTE | 2018-02-24 19:08 | DISCHARGE SUMMARY ---
"Discharge Summary Admit Date: 02/21/18 Discharge Date: 02/24/18 Discharging Provider: Dr. Zia Oliva Code Status: Attempt Resuscitation Condition at Discharge: Good Discharge Disposition: 01 Home, Self Care - DIAGNOSES Admission Diagnoses: Acute appendicitis Discharge Diagnoses with Status of Each Condition: Acute purulent appendicitis resolved with surgical resection - HPI History of Present Illness: 72 year old normally healthy female with classic presentation of acute appendicitis promptly taken to OR by Dr. Mccormick who performed an open appendectomy and placement of drain - CONSULTS | PROCEDURES Consultations: Dr. Mccormick Procedures: Appendectomy and placement of drain - HOSPITAL COURSE Hospital Course: Uncomplicated. - ALLERGIES Allergies/Adverse Reactions: Allergies Allergy/AdvReac Type Severity Reaction Status Date / Time iodine Allergy Anaphylaxis Verified 02/21/18 05:10 shellfish derived Allergy Anaphylaxis Verified 02/21/18 05:10 codeine AdvReac Nausea Verified 02/21/18 05:10 metronidazole [From Flagyl] AdvReac Nausea Verified 02/23/18 21:35 tetracycline AdvReac Nausea Verified 02/21/18 05:10 - MEDICATIONS Home Medications: Ambulatory Orders Medication Instructions Recorded Confirmed Citalopram [CeleXA] 40 mg PO DAILY 07/29/15 02/21/18 LORazepam [Ativan] 0.5 mg PO QPM 07/29/15 02/21/18 Levothyroxine Sodium [Levoxyl] 75 mcg PO QDAC 07/29/15 02/21/18 Ciprofloxacin [Cipro] 250 mg PO BID #14 tablet 02/24/18 HYDROcod/ACETAM 5/325 [[place] 5/325] 1 tab PO Q4HR PRN #10 tablet 02/24/18 LORazepam [Ativan] 0.5 mg PO QPM PRN tablet 02/24/18 Levothyroxine [Synthroid] 75 mcg PO QDAC tablet 02/24/18 - PHYSICAL EXAM AT DISCHARGE General Appearance: positive: No acute distress Eyes Bilateral: positive: No lid inflammation, Conjunctivae nml, No scleral icterus ENT: positive: No signs of dehydration Neck: positive: Trachea midline Respiratory: positive: Chest non-tender, No respiratory distress, Breath sounds nml Cardiovascular: positive: Regular rate & rhythm Abdomen: positive: Nml bowel sounds, No distention, Other (Drain removed and patient tolerated well.) Skin: positive: Color nml Extremities: positive: Non-tender, Nml appearance Neurologic/Psychiatric: positive: Oriented x3 - LABS Result Diagrams: 02/23/18 06:45 02/21/18 06:07 - FOLLOW UP Follow Up: Dr. Zia Oliva for wound check and staple removal in 7-10 days - TIME SPENT Time Spent in Discharge (Minutes): 45"
[2018-02-24 19:24] VITALS: BP 156/79
--- NOTE | 2018-03-10 16:56 | HISTORY & PHYSICAL EXAMINATION ---
History - Past Medical History Cardiovascular: reports: None Respiratory: reports: None Endocrine/Autoimmune: reports: HyPOthyroidism GI: reports: Other : reports: None HEENT: reports: None Psych: reports: Depression Musculoskeletal: reports: None Derm: reports: None MRSA Hx?: No Other Past Medical History: Hemocromatosis - Past Surgical History General: reports: Colonoscopy HEENT: reports: Other - POLST Patient has POLST: Yes Meds/Allgy - Home Medications Home Medications: Ambulatory Orders Medication Instructions Recorded Confirmed Citalopram [CeleXA] 40 mg PO DAILY 07/29/15 02/21/18 LORazepam [Ativan] 0.5 mg PO QPM 07/29/15 02/21/18 Levothyroxine Sodium [Levoxyl] 75 mcg PO QDAC 07/29/15 02/21/18 Ciprofloxacin [Cipro] 250 mg PO BID #14 tablet 02/24/18 HYDROcod/ACETAM 5/325 [[place] 5/325] 1 tab PO Q4HR PRN #10 tablet 02/24/18 LORazepam [Ativan] 0.5 mg PO QPM PRN tablet 02/24/18 Levothyroxine [Synthroid] 75 mcg PO QDAC tablet 02/24/18 - Allergies Allergies/Adverse Reactions: Allergies Allergy/AdvReac Type Severity Reaction Status Date / Time iodine Allergy Anaphylaxis Verified 02/21/18 05:10 shellfish derived Allergy Anaphylaxis Verified 02/21/18 05:10 codeine AdvReac Nausea Verified 02/21/18 05:10 metronidazole [From Flagyl] AdvReac Nausea Verified 02/23/18 21:35 tetracycline AdvReac Nausea Verified 02/21/18 05:10 Conclusion/Plan - Lab Results Fish Bones: 02/23/18 06:45 02/21/18 06:07
== END 2018-02-24 20:06 | disposition home or self-care (01) | DRG 340 ==
LOC: ED 05:00 → SDS 07:42 → MS2 10:44
PROVIDERS: ADMIT Surgery; ATTEND Surgery
PROC: 0DTJ0ZZ Resection of Appendix, Open Approach (ICD-10-PCS; principal; 2018-02-21 11:00)
DX: K37 Unspecified appendicitis (principal); K35.2 Acute appendicitis with generalized peritonitis; E03.9 Hypothyroidism, unspecified
CPT/HCPCS: 36415; 74176; 80053; 81001; 81003; 81599; 83690; 85025; 87070; 87077; 87086; 87181; 87205; 96361; 96365; 96375; 99284; 99285

== ENCOUNTER 2018-04-07 13:01 | Outpatient (CLI) | payer MEDICARE, OTHER | END 2018-04-07 13:02 | disposition home or self-care (01) | LOC: SC 13:01 | PROVIDERS: ATTEND Internal Medicine Pulmonary Disease | DX: G47.30 Sleep apnea, unspecified (principal); G47.10 Hypersomnia, unspecified; G47.8 Other sleep disorders; R06.83 Snoring; R41.89 Other symptoms and signs involving cognitive functions and awareness | CPT/HCPCS: 99203; G0463; 99212 ==

== ENCOUNTER 2018-04-25 14:16 | Outpatient (CLI) | payer MEDICARE, OTHER ==
[2018-04-25 14:40] LABS: HGB - HEMOGLOBIN 14.5 g/dL (12.0-16.0); MEAN CORPUSCULAR HEMOGLOBIN 35.1 pg (27.0-31.0); MEAN CORPUSCULAR HGB CONC 35.4 g/dL (32.0-36.0); MEAN CORPUSCULAR VOLUME 99.1 fL (81.0-99.0); MEAN PLATELET VOLUME 8.5 fL (7.9-10.8); RED BLOOD COUNT 4.12 10^6/uL (4.20-5.40); RED CELL DISTRIBUTION WIDTH 12.5 % (12.0-15.0); WHITE BLOOD COUNT 6.4 x10^3/uL (4.8-10.8)
[2018-04-25 14:50] LABS: ALBUMIN 4.4 g/dL (3.2-5.5); BILIRUBIN,DIRECT 0.1 mg/dL (0.1-0.5); TOTAL PROTEIN 7.3 g/dL (6.7-8.2)
== END 2018-04-25 14:17 | disposition home or self-care (01) ==
LOC: LAB 14:16
DX: E83.110 Hereditary hemochromatosis (principal)
CPT/HCPCS: 36415; 80076; 82728; 85027

== ENCOUNTER 2018-05-18 20:30 | Outpatient (CLI) | payer MEDICARE, OTHER | END 2018-05-18 20:31 | disposition home or self-care (01) | LOC: SC 20:30 | PROVIDERS: ATTEND Internal Medicine Pulmonary Disease | DX: G47.33 Obstructive sleep apnea (adult) (pediatric) (principal) | CPT/HCPCS: 95810 ==

== ENCOUNTER 2018-06-30 12:48 | Outpatient (CLI) | payer MEDICARE, OTHER | END 2018-06-30 12:49 | disposition home or self-care (01) | LOC: SC 12:48 | PROVIDERS: ATTEND Nurse Practitioner Family | DX: G47.33 Obstructive sleep apnea (adult) (pediatric) (principal) | CPT/HCPCS: 99215; G0463; 99212 ==

== ENCOUNTER 2018-09-05 12:15 | Emergency (ER) | payer MEDICARE, OTHER ==
[2018-09-05 12:28] VITALS: BP 130/82
[2018-09-05] MEDS ORDERED: LIDOCAINE 1% 2 ML VIAL SUBQ STA (13:26)
--- NOTE | 2018-09-05 13:49 | ED Physician Documentation ---
PD HPI UPPER EXT INJURY - Stated complaint Stated Complaint: L FINGER LAC - Chief complaint Chief Complaint: Laceration - History obtained from History obtained from: Patient - History of Present Illness Location: Left, Finger (4th) Type of injury: Laceration (scissors) Where injury occurred: Home Timing - onset: How many hours ago (1) Timing - duration: Hours (1) Timing - details: Abrupt onset Pain level max: 3 Pain level now: 2 Improved by: Rest Worsened by: Moving, Palpating Associated symptoms: No: Weakness, Numbness, Tingling, Swelling, Discolored Contributing factors: No: Anticoagulated - Additonal information Additional information: pt is right handed. Td UTD (2016) Review of Systems Constitutional: denies: Fever, Chills Neurologic: denies: Focal weakness, Numbness PD PAST MEDICAL HISTORY - Past Medical History Past Medical History: Yes Cardiovascular: None Respiratory: None Endocrine/Autoimmune: HyPOthyroidism GI: Other : None HEENT: None Psych: Depression Musculoskeletal: None Derm: None - Past Surgical History Past Surgical History: Yes General: Colonoscopy HEENT: Other - Present Medications Home Medications: Ambulatory Orders Medication Instructions Recorded Confirmed Citalopram [CeleXA] 40 mg PO DAILY 07/29/15 02/21/18 LORazepam [Ativan] 0.5 mg PO QPM 07/29/15 02/21/18 Levothyroxine Sodium [Levoxyl] 75 mcg PO QDAC 07/29/15 02/21/18 Ciprofloxacin [Cipro] 250 mg PO BID #14 tablet 02/24/18 HYDROcod/ACETAM 5/325 [[place] 5/325] 1 tab PO Q4HR PRN #10 tablet 02/24/18 LORazepam [Ativan] 0.5 mg PO QPM PRN tablet 02/24/18 Levothyroxine [Synthroid] 75 mcg PO QDAC tablet 02/24/18 - Allergies Allergies/Adverse Reactions: Allergies Allergy/AdvReac Type Severity Reaction Status Date / Time iodine Allergy Anaphylaxis Verified 09/05/18 12:28 shellfish derived Allergy Anaphylaxis Verified 09/05/18 12:28 codeine AdvReac Nausea Verified 09/05/18 12:28 metronidazole [From Flagyl] AdvReac Nausea Verified 09/05/18 12:28 tetracycline AdvReac Nausea Verified 09/05/18 12:28 - Social History Does the pt smoke?: No Smoking Status: Never smoker Does the pt drink ETOH?: Yes Does the pt have substance abuse?: No - Immunizations Immunizations are current?: No Immunizations: TDAP >10years/unknown - POLST Patient has POLST: Yes PD ED PE NORMAL - Vitals Vital signs reviewed: Yes - General General: Alert and oriented X 3, No acute distress - HEENT HEENT: Moist mucous membranes - Derm Derm: Warm and dry - Extremities Extremities: Other (L 4th digit 1cm laceration, palmar aspect of the digit at the PIP joint. NVI. no tendon injury) - Neuro Neuro: Alert and oriented X 3 Results - Vitals Vitals: Vital Signs - 24 hr 09/05/18 12:26 Temperature 35.7 C L Heart Rate 61 Respiratory 14 Rate Blood Pressure 130/82 H O2 Saturation 98 Oxygen O2 Source Room air Procedures - Laceration (location) L 4th digit Length in cm: 1 Wound type: Linear, Into subcut fat Neurovascular status: Sensory intact, Motor intact, Vascular intact Tendon involvement: Tendon intact Anesthesia: Lidocaine 1% Wound Preparation: Irrigated copiously NS (250ml), Wound explored, To the base. No: FB identified, FB removed Skin layer closure: Nylon, Interrupted, Size #-0 - enter number (4), Sutures - enter # (3) Other: Patient tolerated well, No complications, Neurovascular intact, Dressing applied, Tetanus UTD Complexity: Simple PD MEDICAL DECISION MAKING - ED course Complexity details: considered differential, d/w patient ED course: Warnings of infection and instructions on wound care given at bedside. Also counseled on how to minimize scarring. Patient counseled regarding signs and symptoms for which I believe and urgent re-evaluation would be necessary. Patient with good understanding of and agreement to plan and is comfortable going home at this time This document was made in part using voice recognition software. While efforts are made to proofread this document, sound alike and grammatical errors may occur. No foreign body. No tendon injury. Neurovascularly intact Departure - Departure Disposition: 01 Home, Self Care Clinical Impression: Finger laceration Qualifiers: Encounter type: initial encounter Finger: ring finger Damage to nail status: without damage Foreign body presence: without foreign body Laterality: left Qualified Code(s): S61.215A - Laceration without foreign body of left ring finger without damage to nail, initial encounter Condition: Good Instructions: ED Laceration Hand Follow-Up: Bethanie Bender MD [Primary Care Provider] - (in 10 days for suture removal ) Comments: Follow-up with your doctor in approximately 10 days for suture removal. Return if you worsen including redness, swelling or drainage from the wound. Keep the wound clean. Discharge Date/Time: 09/05/18 14:11
== END 2018-09-05 14:11 | disposition home or self-care (01) ==
LOC: ED 12:15
DX: S61.215A Laceration without foreign body of left ring finger without damage to nail, initial encounter (principal); W27.2XXA Contact with scissors, initial encounter; Y92.009 Unspecified place in unspecified non-institutional (private) residence as the place of occurrence of the external cause
CPT/HCPCS: 12001; 99282; 99283

== ENCOUNTER 2018-09-12 15:21 | Outpatient (CLI) | payer MEDICARE, OTHER ==
[2018-09-12 16:02] LABS: ALBUMIN 4.2 g/dL (3.2-5.5); ALKALINE PHOSPHATASE 68 IU/L (42-121); ALT ALANINE AMINOTRANSFERASE 23 IU/L (10-60); AST ASPARTATE AMINOTRANSFERASE 25 IU/L (10-42); BILIRUBIN,TOTAL 0.9 mg/dL (0.2-1.0); TOTAL PROTEIN 6.9 g/dL (6.7-8.2)
[2018-09-12 16:06] LABS: BILIRUBIN,DIRECT < 0.1 mg/dL (0.1-0.5)
[2018-09-12 16:22] LABS: EOSINOPHILS # (AUTO) 0.1 10^3/uL (0.0-0.7); EOSINOPHILS % (AUTO) 2.2 %; HGB - HEMOGLOBIN 13.9 g/dL (12.0-16.0); LYMPHOCYTES # (AUTO) 1.8 10^3/uL (1.5-3.5); LYMPHOCYTES % (AUTO) 42.7 %; MEAN CORPUSCULAR HEMOGLOBIN 34.5 pg (27.0-31.0); MEAN CORPUSCULAR HGB CONC 34.9 g/dL (32.0-36.0); MEAN PLATELET VOLUME 8.8 fL (7.9-10.8); MONOCYTES # (AUTO) 0.6 10^3/uL (0.0-1.0); MONOCYTES % (AUTO) 12.9 %; NEUTROPHILS # (AUTO) 1.8 10^3/uL (1.5-6.6); NEUTROPHILS % (AUTO) 41.2 %; PLT - PLATELET COUNT 205 10^3/uL (130-450); RED BLOOD COUNT 4.03 10^6/uL (4.20-5.40); WHITE BLOOD COUNT 4.3 x10^3/uL (4.8-10.8)
== END 2018-09-12 15:22 | disposition home or self-care (01) ==
LOC: LAB 15:21
PROVIDERS: ATTEND Internal Medicine Gastroenterology
DX: E83.110 Hereditary hemochromatosis (principal)
CPT/HCPCS: 36415; 80076; 82728; 85025

== ENCOUNTER 2018-09-14 12:23 | Emergency (ER) | payer MEDICARE, OTHER ==
[2018-09-14 12:27] VITALS: BP 135/72
--- NOTE | 2018-09-14 12:29 | ED Physician Documentation ---
PD HPI WOUND RECHECK - Stated complaint Stated Complaint: SUTURE REMOVAL - Chief complaint Chief Complaint: Wound - Histroy obtained from History obtained from: Patient - History of Present Illness Location: Other (Left fourth digit) Timing - onset: How many days ago (9) Pain level max: 0 Pain level now: 0 Associated symptoms: No: Fever, Redness, Swelling, Drainage, Pain - Additional information Additional information: Patient here for suture removal. No complaints. No redness, no swelling, no drainage. Review of Systems Constitutional: denies: Fever PD PAST MEDICAL HISTORY - Past Medical History Cardiovascular: None Respiratory: None Endocrine/Autoimmune: HyPOthyroidism GI: Other : None HEENT: None Psych: Depression Musculoskeletal: None Derm: None - Past Surgical History Past Surgical History: Yes General: Colonoscopy HEENT: Other - Present Medications Home Medications: Ambulatory Orders Medication Instructions Recorded Confirmed Citalopram [CeleXA] 40 mg PO DAILY 07/29/15 02/21/18 LORazepam [Ativan] 0.5 mg PO QPM 07/29/15 02/21/18 Levothyroxine Sodium [Levoxyl] 75 mcg PO QDAC 07/29/15 02/21/18 Ciprofloxacin [Cipro] 250 mg PO BID #14 tablet 02/24/18 HYDROcod/ACETAM 5/325 [[place] 5/325] 1 tab PO Q4HR PRN #10 tablet 02/24/18 LORazepam [Ativan] 0.5 mg PO QPM PRN tablet 02/24/18 Levothyroxine [Synthroid] 75 mcg PO QDAC tablet 02/24/18 - Allergies Allergies/Adverse Reactions: Allergies Allergy/AdvReac Type Severity Reaction Status Date / Time iodine Allergy Anaphylaxis Verified 09/14/18 12:36 shellfish derived Allergy Anaphylaxis Verified 09/14/18 12:36 codeine AdvReac Nausea Verified 09/14/18 12:36 metronidazole [From Flagyl] AdvReac Nausea Verified 09/14/18 12:36 tetracycline AdvReac Nausea Verified 09/14/18 12:36 - Social History Does the pt smoke?: No Smoking Status: Never smoker Does the pt drink ETOH?: Yes Does the pt have substance abuse?: No - Immunizations Immunizations are current?: No Immunizations: TDAP >10years/unknown - POLST Patient has POLST: Yes PD ED PE NORMAL - Vitals Vital signs reviewed: Yes - General General: Alert and oriented X 3 - Derm Derm: Warm and dry - Extremities Extremities: Other (Laceration to left fourth digit is well-healed. No dehiscence. No signs of infection) - Neuro Neuro: Alert and oriented X 3 Results - Vitals Vitals: Vital Signs - 24 hr 09/14/18 12:26 Temperature 36.3 C L Heart Rate 70 Respiratory 18 Rate Blood Pressure 135/72 H O2 Saturation 95 Oxygen O2 Source Room air PD MEDICAL DECISION MAKING - ED course Complexity details: considered differential, d/w patient ED course: Sutures removed. No signs of infection. No complications. Patient counseled regarding signs and symptoms for which I believe and urgent re-evaluation would be necessary. Patient with good understanding of and agreement to plan and is comfortable going home at this time This document was made in part using voice recognition software. While efforts are made to proofread this document, sound alike and grammatical errors may occur. Departure - Departure Disposition: 01 Home, Self Care Clinical Impression: Visit for suture removal Condition: Good Instructions: ED Stap Removal No Complication Follow-Up: Bethanie Bender MD [Primary Care Provider] - As Needed Comments: Return if you notice redness, swelling or drainage from the wound. Discharge Date/Time: 09/14/18 12:37
== END 2018-09-14 12:37 | disposition home or self-care (01) ==
LOC: ED 12:23
DX: S61.215D Laceration without foreign body of left ring finger without damage to nail, subsequent encounter (principal); X58.XXXD Exposure to other specified factors, subsequent encounter; E03.9 Hypothyroidism, unspecified
CPT/HCPCS: 99281; 99282

== ENCOUNTER 2018-09-24 15:26 | Outpatient (CLI) | payer MEDICARE, OTHER | END 2018-09-24 15:27 | disposition home or self-care (01) | LOC: SC 15:26 | PROVIDERS: ATTEND Nurse Practitioner Family | DX: G47.33 Obstructive sleep apnea (adult) (pediatric) (principal) | CPT/HCPCS: 99214; G0463; 99212 ==

== ENCOUNTER 2018-10-30 12:48 | Outpatient (CLI) | payer MEDICARE, OTHER | END 2018-10-30 12:49 | disposition home or self-care (01) | LOC: SC 12:48 | PROVIDERS: ATTEND Nurse Practitioner Family | DX: G47.33 Obstructive sleep apnea (adult) (pediatric) (principal) | CPT/HCPCS: 99214; G0463; 99212 ==

== ENCOUNTER 2018-12-22 15:14 | Outpatient (CLI) | payer MEDICARE, OTHER | END 2018-12-22 15:15 | disposition home or self-care (01) | LOC: SC 15:14 | PROVIDERS: ATTEND Nurse Practitioner Family | DX: G47.33 Obstructive sleep apnea (adult) (pediatric) (principal) | CPT/HCPCS: 99214; G0463; 99212 ==

== ENCOUNTER 2018-12-26 13:53 | Outpatient (CLI) | payer MEDICARE, OTHER | END 2018-12-26 13:54 | disposition home or self-care (01) | LOC: LAB 13:53 | PROVIDERS: ATTEND Internal Medicine Gastroenterology | DX: E83.110 Hereditary hemochromatosis (principal) | CPT/HCPCS: 36415; 82728 ==

== ENCOUNTER 2019-01-13 00:27 | Emergency (ER) | payer MEDICARE, OTHER ==
[2019-01-13 00:33] VITALS: BP 161/70
--- NOTE | 2019-01-13 00:38 | ED Physician Documentation ---
PD HPI HEAD INJURY - Stated complaint Stated Complaint: NOSE LAC/FALL - Chief complaint Chief Complaint: Laceration - History obtained from History obtained from: Patient - History of Present Illness Mechanism of head injury: Fell (She states she and her has been went into the bedroom and there was a bat flying around. They had had this happen previously a few times as there are some bats that sleep and reduced in the ED use outside the bedroom. They closed off several of the doors and left the one open that leads outside. The bat flew around a few times and the patient thought it was flying towards her head and so she dove down quickly and stumbled and fell and struck her face on the floor. Her glasses pushed into her face abruptly and she received a laceration on the bridge of the nose. She denies other injury. She and her state the back flew out of the bedroom into the outdoors and flew away. They did not feel there was any contact with the bat such as abrasions bites or guano.) Where head injury occurred: Home Timing - onset: How many hours ago (1), Today Location of injury: Front (Bridge of the nose) Quality of pain: Aching Associated symptoms: No: LOC, AMS, Nausea / vomiting Symptoms worsen with: Palpation Contributing factors: No: Anticoagulated Similar symptoms before: Has not had sx before Review of Systems Eyes: denies: Decreased vision, Photophobia Neurologic: denies: Focal weakness, Numbness, Altered mental status, Headache PD PAST MEDICAL HISTORY - Past Medical History Cardiovascular: None Respiratory: None Endocrine/Autoimmune: HyPOthyroidism GI: Other : None HEENT: None Psych: Depression Musculoskeletal: None Derm: None - Past Surgical History Past Surgical History: Yes General: Colonoscopy HEENT: Other - Present Medications Home Medications: Ambulatory Orders Medication Instructions Recorded Confirmed RX: Citalopram [CeleXA] 40 mg PO DAILY 07/29/15 02/21/18 RX: LORazepam [Ativan] 0.5 mg PO QPM 07/29/15 02/21/18 RX: Levothyroxine Sodium [Levoxyl] 75 mcg PO QDAC 07/29/15 02/21/18 RX: Ciprofloxacin [Cipro] 250 mg PO BID #14 tablet 02/24/18 RX: HYDROcod/ACETAM 5/325 [[place] 1 tab PO Q4HR PRN #10 tablet 02/24/18 5/325] RX: LORazepam [Ativan] 0.5 mg PO QPM PRN tablet 02/24/18 RX: Levothyroxine [Synthroid] 75 mcg PO QDAC tablet 02/24/18 - Allergies Allergies/Adverse Reactions: Allergies Allergy/AdvReac Type Severity Reaction Status Date / Time iodine Allergy Anaphylaxis Verified 01/13/19 00:33 shellfish derived Allergy Anaphylaxis Verified 01/13/19 00:33 codeine AdvReac Nausea Verified 01/13/19 00:33 metronidazole [From Flagyl] AdvReac Nausea Verified 01/13/19 00:33 tetracycline AdvReac Nausea Verified 01/13/19 00:33 - Social History Does the pt smoke?: No Smoking Status: Never smoker Does the pt drink ETOH?: Yes Does the pt have substance abuse?: No - Immunizations Immunizations are current?: No Immunizations: TDAP >10years/unknown - POLST Patient has POLST: Yes PD ED PE NORMAL - Vitals Vital signs reviewed: Yes - General General: Alert and oriented X 3, No acute distress, Well developed/nourished - HEENT HEENT: PERRL, EOMI, Other (The bridge of the nose shows a almost 1 cm rounded abrasion which is partial-thickness for most of it and just full-thickness at the very center. There is some bruising noted on each side of the nose consistent with the iPads of the glasses. There is no bony tenderness. The nares appear normal with out any septal hematoma nor bleeding. The rest of the face is not tender.) - Neck Neck: Supple, no meningeal sign, No bony TTP, No adenopathy - Derm Derm: Normal color, Warm and dry - Neuro Neuro: Alert and oriented X 3, No motor deficit, Normal speech Results - Vitals Vitals: Vital Signs - 24 hr 01/13/19 01/13/19 01/13/19 00:31 00:40 01:44 Temperature 36.2 C L Heart Rate 67 58 L Respiratory 16 16 18 Rate Blood Pressure 161/70 H O2 Saturation 97 96 Oxygen O2 Source Room air PD MEDICAL DECISION MAKING - ED course Complexity details: considered differential (She and her state they have had bats in their bedroom a couple of times previously. That you have some that reduced in the ease outside their bedroom. They did not feel there was any physical contact with the bat. We did discuss the theoretical concern for an unusual acting bat in the house. They deferred any rabies vaccine or treatment.), d/w patient Departure - Departure Disposition: 01 Home, Self Care Clinical Impression: Abrasion of nose Qualifiers: Encounter type: initial encounter Qualified Code(s): S00.31XA - Abrasion of nose, initial encounter Fall Qualifiers: Encounter type: initial encounter Qualified Code(s): W19.XXXA - Unspecified fall, initial encounter Condition: Stable Record reviewed to determine appropriate education?: Yes Instructions: ED Abrasion Follow-Up: Bethanie Bender MD [Primary Care Provider] - Comments: Cleanse wound couple of times a day and apply a little bit of ointment and can cover it with a Band-Aid. This should heal in with mild scarring. Recheck if signs of infection. The exposure of having the bat in the bedroom with you has a theoretical risk of exposure to rabies. Return if you feel that is concerning enough for you to initiate the rabies vaccine. Discharge Date/Time: 01/13/19 01:44
[2019-01-13] MEDS ORDERED: BACITRACIN OINT TOP STA (01:26)
== END 2019-01-13 01:44 | disposition home or self-care (01) ==
LOC: ED 00:27
DX: S00.31XA Abrasion of nose, initial encounter (principal); S00.33XA Contusion of nose, initial encounter; W01.0XXA Fall on same level from slipping, tripping and stumbling without subsequent striking against object, initial encounter; Y93.89 Activity, other specified; Y92.003 Bedroom of unspecified non-institutional (private) residence as the place of occurrence of the external cause
CPT/HCPCS: 99282; A9270

== ENCOUNTER 2019-02-23 12:48 | Outpatient (CLI) | payer MEDICARE, OTHER ==
[2019-02-23 13:57] VITALS: BP 112/60
--- NOTE | 2019-02-23 13:57 | SLEEP CARE CONSULTATION ---
Information from patient questionnaire entered by Linda Johnson. I have reviewed and concur with the information entered by Linda Johnson. This document represents the service I personally performed and the decisions made by me, Bev Cerna, RN, MSN, [employer]. History of Present Illness Previous diagnosis: Moderate, Obstructive Sleep Apnea-Hypopnea Syndrome AHI: 27.2 Reason for CPAP/BiPAP follow up: other (2 month) Equipment type: CPAP Equipment obtained from: [facility] Mask style: Full face (Dreamwear) Mask brand: Respironics Backup mask available: No Last cushion change: 2 weeks ago HPI additional information: The CPAP pressure was increased for residual AHI. For mask irritation she tired a cloth barrier but made mask leaks worse and woke her. She tried the baby shampoo which did resolve the skin irritation. The oral dryness is less since nasal congestion less. She has been using saline flush all along. She also started showering at night to wash off allergens as suggested and to facilitate nasal drainage. CPAP Compliance Data - Data Reviewed with Patient Average duration of nightly device use: 8.7 Compliance rate %: 100 (60 days) Current pressure setting (cmH2O): 17 Humidity settin Heated hose settin Average residual AHI: 5.3 Central apnea: 1.0 Obstructive apnea: 2.0 Hypopnea: 2.3 Average large leak: 39 mins 55 secs Subjective Patient concerns: reports: air blowing in eyes, mask leak noise (2 times a month less with adjustment of straps), nasal congestion (less), other (occasionally awakens with mouth full of air but less lately. ). denies: aerophagia, mask discomfort (from vent of mask when sleeps prone. ), condensation in mask/hose, dry mouth, nose, throat, epistaxis Observed to snore while using device: No Current pressure setting perceived as: too high On therapy, patient: reports: sleeping better, awakening more refreshed, being more awake and alert during the day, more rested overall. denies: drowsiness while driving Initial [place] Sleepiness Scale score: 8 Current [place] Sleepiness Scale score: 5 Allergies and Home Medications Known drug allergies: Yes (iodine contrast dye) Home medication list reviewed: Yes Allergy and home medication list: Medication Name (generic/name brand) Strength & Dosage Citalopram 40mg tab one daily Levothyroxine 100 mcg tab one daily Lorazepam 0.50mcg ( 1/2 of 0.100mcg tablet ) prn Calcium 1000mg tab one twice daily Multivitamin without iron Tab one daily Allergy List Injected Iodine Review of Systems Review of systems same as previous: Yes Physical Exam Blood Pressure: 112/60 Cuff size: regular Heart Rate: 72 O2 Saturation: 93 Height: 5 ft 2.5 in Weight (kg): 166 lb 9.6 oz Body Mass Index: 29.9 BMI Classification: Overweight Impression and Plan 1. Obstructive Sleep Apnea-Hypopnea Syndrome, moderate, with good treatment compliance and slightly elevated AHI. On CPAP therapy, the patient has better sleep quality and is more rested overall. For comfort air, I will lower her CPAP pressure to [id number]. The ramp is comfortable at present setting. If the pressure is still uncomfortable, she advised to contact me. I informed her the goal is to get her pressure to the lowest comfortable pressure that will get her to a normal AHI below 5. For her desire to try a new mask style like her spouse's, she can contact [place] [facility]. I explained that the venting system is better with her current mask as it is also vented at the top of the hose. Since she has gained more weight, at total of 10 pounds since initial visit, I discussed the impact of her weight gain to her overall health as well as apnea risk. Currently the BMI is just under obesity. She is advised to lose weight. Significant weight loss can decrease her CPAP pressure requirements so symptoms to report for furhter pressure adjustment. Patient's apnea severity and rationale for treatment to reduce apnea, improve sleep quality and reduce cardiovascular and cerebrovascular events was reviewed. I also reviewed the benefit of consistent device use of CPAP for anxiety, . She has noted less anxiety. She takes less lorazepam to control her anxiety as well as less to get to sleep. * * Change CPAP pressure to 16 cmH2O * Notify me if snoring with mask or feeling that the pressure is too much or too little * Attempt to lose weight * Return for follow up in 2 months , or sooner if concerns arise I spent 100% of this 35 minute visit face to face with the patient with greater than 50% of this was spent time counseling the patient and coordination of care.
== END 2019-02-23 12:49 | disposition home or self-care (01) ==
LOC: SC 12:48
PROVIDERS: ATTEND Nurse Practitioner Family
DX: G47.33 Obstructive sleep apnea (adult) (pediatric) (principal)
CPT/HCPCS: 99214; G0463; 99212

== ENCOUNTER 2019-04-30 12:46 | Outpatient (CLI) | payer MEDICARE, OTHER ==
[2019-04-30 13:39] VITALS: BP 140/76
--- NOTE | 2019-04-30 13:39 | SLEEP CARE CONSULTATION ---
Information from patient questionnaire entered by Linda Johnson. I have reviewed and concur with the information entered by Linda Johnson. This document represents the service I personally performed and the decisions made by me, Bev Cerna, RN, MSN, MOLD FILLING OPERATOR. History of Present Illness Previous diagnosis: Moderate, Obstructive Sleep Apnea-Hypopnea Syndrome AHI: 27.2 Reason for follow up: other (2 month) Accompanied by: Spouse Equipment type: CPAP Equipment obtained from: [facility] Mask style: Full face (Dreamwear full face) Mask brand: Respironics Backup mask available: Yes Last cushion change: 2 days ago HPI additional information: The pressure was reduced to [id number] for comfort and is working well. She did not try the different mask style. She has started to lose weight as advised. CPAP Compliance Data - Data Reviewed with Patient Average duration of nightly device use: 8.7 Compliance rate %: 96.7 (60 days) Current pressure setting (cmH2O): 16 Humidity settin Heated hose settin Average residual AHI: 8.9 Central apnea: 1.0 Obstructive apnea: 3.1 Hypopnea: 4.8 Average large leak: 1 hr 44 min 55 sec Subjective Missed days of use due to: reports: other (patient wore every day though no data on 2 days in March ) Patient concerns: reports: air blowing in eyes (resolved with new mask the last 2 days ), mask leak noise, nasal congestion (uses Libby pot / showers / increased ). denies: aerophagia, mask discomfort, condensation in mask/hose, dry mouth, nose, throat, epistaxis Observed to snore while using device: No Current pressure setting perceived as: comfortable On therapy, patient: reports: sleeping better, awakening more refreshed, being more awake and alert during the day, more rested overall, drowsiness while driving Initial [place] Sleepiness Scale score: 8 Current [place] Sleepiness Scale score: 3 Allergies and Home Medications Known drug allergies: Yes Home medication list reviewed: Yes Allergy and home medication list: Citalopram 40mg tab one daily Levothyroxine 100 mcg tab one daily Lorazepam 0.25mg tab prn Calcium 500mg tab one twice daily Multivitamin without iron Tab one daily Allergy List Injected Iodine, shellfish Review of Systems Review of systems same as previous: Yes Physical Exam Blood Pressure: 140/76 Cuff size: long Heart Rate: 64 O2 Saturation: 96 Height: 5 ft 2.5 in Weight: 165 lb 12.8 oz Body Mass Index: 29.8 BMI Classification: Overweight Impression and Plan 1. Obstructive Sleep Apnea-Hypopnea Syndrome, moderate, with good treatment compliance and elevated residual apnea. On CPAP therapy, the patient has better sleep quality and is more rested overall. It appears her residual AHI is elevated due to large mask leaks. The pressure will not be changed for this reason.To reduce mask leaks, she is to check her mask leak on her CPAP as shown on sample device. Goals discussed to have the AHI below 5. The last two days were best results when no mask leaks. Otherwise average leak was 1.74 hours. She adjusted straps differently when obtained new cushion 2 days ago. So advised her to doron where current straps are as it is working to maintain a better fitting mask. She has not been changing cushions monthly and so advised to start to help maintain mask seal. Thus it was emphasized of importance of managing mask leaks for maximum benefit of treatment. For nasal congestion , she can increase her humidity more as shown. Patient's apnea severity and rationale for treatment to reduce apnea, improve sleep quality and reduce cardiovascular and cerebrovascular events was reviewed. I also reviewed the benefit of consistent device use of CPAP for anxiety. * Continue CPAP pressure at 16 cmH2O * Check mask fit daily * change mask cushion more frequently and regularly * Notify me if snoring with mask or feeling that the pressure is too much or too little * Attempt to lose weight * Return for follow up in 6 months , or sooner if concerns arise I spent 100% of this 30 minute visit face to face with the patient with greater than 50% of this was spent time counseling the patient and coordination of care.
== END 2019-04-30 12:47 | disposition home or self-care (01) ==
LOC: SC 12:46
PROVIDERS: ATTEND Nurse Practitioner Family
DX: G47.33 Obstructive sleep apnea (adult) (pediatric) (principal)
CPT/HCPCS: 99214; G0463; 99212

== ENCOUNTER 2020-02-23 14:50 | Outpatient (CLI) | payer MEDICARE, OTHER ==
[2020-02-23 15:03] LABS: BASOPHILS % (AUTO) 0.9 %; EOSINOPHILS # (AUTO) 0.1 10^3/uL (0.0-0.7); EOSINOPHILS % (AUTO) 3.1 %; HGB - HEMOGLOBIN 12.8 g/dL (12.0-16.0); LYMPHOCYTES # (AUTO) 1.5 10^3/uL (1.5-3.5); LYMPHOCYTES % (AUTO) 36.3 %; MEAN CORPUSCULAR HEMOGLOBIN 36.1 pg (27.0-31.0); MEAN CORPUSCULAR HGB CONC 35.2 g/dL (32.0-36.0); MEAN CORPUSCULAR VOLUME 102.5 fL (81.0-99.0); MEAN PLATELET VOLUME 10.1 fL (7.9-10.8); MONOCYTES # (AUTO) 0.5 10^3/uL (0.0-1.0); MONOCYTES % (AUTO) 12.5 %; PLT - PLATELET COUNT 201 10^3/uL (130-450); RED BLOOD COUNT 3.55 10^6/uL (4.20-5.40); RED CELL DISTRIBUTION WIDTH 12.1 % (12.0-15.0); WHITE BLOOD COUNT 4.2 x10^3/uL (4.8-10.8)
[2020-02-23 15:15] LABS: ALBUMIN 4.3 g/dL (3.2-5.5); BILIRUBIN,DIRECT 0.1 mg/dL (0.1-0.5); BILIRUBIN,TOTAL 0.7 mg/dL (0.2-1.0); TOTAL PROTEIN 7.2 g/dL (6.7-8.2)
== END 2020-02-23 14:51 | disposition home or self-care (01) ==
LOC: LAB 14:50
PROVIDERS: ATTEND Internal Medicine Gastroenterology
DX: E83.110 Hereditary hemochromatosis (principal)
CPT/HCPCS: 36415; 80076; 82728; 85025

== ENCOUNTER 2020-08-30 13:29 | Outpatient (CLI) | payer MEDICARE, OTHER ==
[2020-08-30 14:21] VITALS: BP 122/69
--- NOTE | 2020-08-30 14:21 | SLEEP CARE CONSULTATION ---
Information from patient questionnaire entered by Marshall Schultz. I have reviewed and concur with the information entered by Marshall Schultz. This document represents the service I personally performed and the decisions made by , Nae Hughes ARNP. History of Present Illness Service Date and Time: 08/30/2020 1329 Previous diagnosis: Moderate, Obstructive Sleep Apnea-Hypopnea Syndrome AHI: 27.2 Reason for follow up: annual (Last seen 04/2019) Equipment type: CPAP Equipment obtained from: [facility] (getting supplies as needed) Mask style: Full face (Dreamwear full face) Mask brand: Respironics Backup mask available: Yes (old mask) Last cushion change: 3 weeks Year and Where: 2018 [facility] additional information: MADISYN GUALLPA was diagnosed to have moderate, AHI 27.2, obstructive sleep apnea-hypopnea syndrome and returned today with partner for CPAP therapy annual follow-up. CPAP Compliance Data - Data Reviewed with Patient Average duration of nightly device use: 8 h 21 min Compliance rate %: 98.9 Current pressure setting (cmH2O): 16 Humidity settin Heated hose settin Average residual AHI: 5.8 Average large leak: 1 h 47 min 7 sec Subjective Missed days of use due to: reports: mask issues (wrong size mask, but was replaced) Patient concerns: reports: air blowing in eyes (some dry eyes, using eye drops). denies: aerophagia, mask discomfort, mask leak noise, condensation in mask/hose, nasal congestion, dry mouth, nose, throat, epistaxis, other Observed to snore while using device: No Current pressure setting perceived as: comfortable On therapy, patient: reports: sleeping better, awakening more refreshed, being more awake and alert during the day, more rested overall. 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 Obstructive Sleep Apnea-Hypopnea Syndrome, moderate, with good treatment compliance and fair apnea control with minimal elevation of residual AHI. She has adequate reduction of her apneas. On CPAP therapy, the patient has better sleep quality and is more rested overall. She has been having some trouble with air leaking into her eye and her eyes have been feeling dry. She is using an eye drop that was recommended by her eye doctor. I advised that she could use a sleeping mask to cover her eyes to reduce further air blowing in her eyes and she voiced understanding. Patient's apnea severity and rationale for treatment to reduce apnea, improve sleep quality and reduce cardiovascular and cerebrovascular events was reviewed. I also reviewed the benefit of consistent device use of CPAP for anxiety. * Continue auto CPAP pressure at 16 cmH2O * Notify me if snoring with mask or feeling that the pressure is too much or too little * Attempt to lose weight * Call this office if any problems using CPAP * Return for follow up in 1 year, or sooner if concerns arise Counseling Topics: Weight loss health impact Visit Type: In Office Time Spent with Patient (minutes): 21 Provider Statement: I spent 100% of the Face to Face Visit with the patient with greater than 50% spent counseling the patient and coordination of care.
== END 2020-08-30 13:30 | disposition home or self-care (01) ==
LOC: SC 13:29
PROVIDERS: ATTEND Nurse Practitioner Family
DX: G47.33 Obstructive sleep apnea (adult) (pediatric) (principal); E66.3 Overweight; Z68.29 Body mass index [BMI] 29.0-29.9, adult
CPT/HCPCS: 99213; G0463; 99212

== ENCOUNTER 2020-12-16 11:02 | Outpatient (CLI) | payer MEDICARE, OTHER ==
[2020-12-16 11:24] LABS: BASOPHILS # (AUTO) 0.1 10^3/uL (0.0-0.1); BASOPHILS % (AUTO) 1.3 %; EOSINOPHILS # (AUTO) 0.1 10^3/uL (0.0-0.7); EOSINOPHILS % (AUTO) 3.2 %; HCT - HEMATOCRIT 40.3 % (37.0-47.0); HGB - HEMOGLOBIN 14.1 g/dL (12.0-16.0); LYMPHOCYTES # (AUTO) 1.5 10^3/uL (1.5-3.5); LYMPHOCYTES % (AUTO) 39.8 %; MEAN CORPUSCULAR HEMOGLOBIN 34.7 pg (27.0-31.0); MEAN CORPUSCULAR VOLUME 99.3 fL (81.0-99.0); MEAN PLATELET VOLUME 9.9 fL (7.9-10.8); MONOCYTES # (AUTO) 0.5 10^3/uL (0.0-1.0); MONOCYTES % (AUTO) 12.8 %; NEUTROPHILS # (AUTO) 1.6 10^3/uL (1.5-6.6); NEUTROPHILS % (AUTO) 42.9 %; PLT - PLATELET COUNT 208 10^3/uL (130-450); RED BLOOD COUNT 4.06 10^6/uL (4.20-5.40); RED CELL DISTRIBUTION WIDTH 12.1 % (12.0-15.0); WHITE BLOOD COUNT 3.7 x10^3/uL (4.8-10.8)
[2020-12-16 11:43] LABS: ALBUMIN 4.7 g/dL (3.2-5.5); ALBUMIN/GLOBULIN RATIO 1.7 (1.0-2.2); ALKALINE PHOSPHATASE 76 IU/L (42-121); ALT ALANINE AMINOTRANSFERASE 23 IU/L (10-60); AST ASPARTATE AMINOTRANSFERASE 25 IU/L (10-42); BILIRUBIN,TOTAL 0.9 mg/dL (0.2-1.0); BUN - BLOOD UREA NITROGEN 13 mg/dL (6-20); CALCIUM 10.1 mg/dL (8.5-10.3); CARBON DIOXIDE - CO2 29 mmol/L (21-32); CHLORIDE 100 mmol/L (101-111); CHOL/HDL RATIO 2.5 (<4.4); CHOLESTEROL 231 mg/dL; CREATININE 0.7 mg/dL (0.4-1.0); GFR - MDRD 82 (>89); GLUCOSE 100 mg/dL (70-100); HDL CHOLESTEROL 93 mg/dL; LDL CHOLESTEROL,CALCULATED 122 mg/dL; LDL/HDL RATIO 1.3 (<4.4); SODIUM 137 mmol/L (135-145); TOTAL PROTEIN 7.5 g/dL (6.7-8.2); TRIGLYCERIDES 81 mg/dL; VLDL CHOLESTEROL 16 mg/dL
[2020-12-16 11:56] LABS: THYROID STIMULATING HORMONE 1.64 uIU/mL (0.34-5.60)
[2020-12-16 11:58] LABS: FREE T4 (FREE THYROXINE) 1.02 ng/dL (0.58-1.64)
[2020-12-16 12:02] LABS: FERRITIN 42.9 ng/mL (11.0-306.8)
[2020-12-16 12:08] LABS: ESTIMATED AVERAGE GLUCOSE 94 mg/dL (70-100); HEMOGLOBIN A1c% 4.9 % (4.27-6.07)
== END 2020-12-16 11:03 | disposition home or self-care (01) ==
LOC: LAB 11:02
PROVIDERS: ATTEND Internal Medicine
DX: F41.9 Anxiety disorder, unspecified (principal); Z13.6 Encounter for screening for cardiovascular disorders; Z79.899 Other long term (current) drug therapy; D75.89 Other specified diseases of blood and blood-forming organs; E83.119 Hemochromatosis, unspecified; R73.9 Hyperglycemia, unspecified; E03.9 Hypothyroidism, unspecified; E78.5 Hyperlipidemia, unspecified; K58.9 Irritable bowel syndrome, unspecified; G47.33 Obstructive sleep apnea (adult) (pediatric); J30.2 Other seasonal allergic rhinitis; H26.9 Unspecified cataract
CPT/HCPCS: 36415; 80053; 80061; 82728; 83036; 83721; 84439; 84443; 85025

== ENCOUNTER 2021-06-22 15:56 | Outpatient (CLI) | payer MEDICARE, OTHER ==
--- NOTE | 2021-06-22 16:43 | XRAY Report ---
PROCEDURE: Hip w/Pelvis 2-3V RT INDICATIONS: RIGHT HIP PAIN TECHNIQUE: AP pelvis with lateral view(s) of the right hip(s). COMPARISON: None. FINDINGS: Bones: No fractures or dislocations. Right worse than left bilateral hip joint osteoarthritis is se en. No evidence of avascular necrosis of femoral head. Pelvic ring appears intact. No suspicious bon y lesions. Degenerative disc disease in visualized lower lumbar spine is seen. Soft tissues: The visualized bowel gas pattern is normal. No suspicious soft tissue calcifications. IMPRESSION: Right worse than left bilateral hip joint osteoarthritis. No hip fracture or dislocation. No evidence of avascular necrosis of femoral head. Reviewed by: Manny Edwards MD on 06/22/2021 4:42 PM PST Approved by: Manny Edwards MD on 06/22/2021 4:42 PM PST Station ID: [id number]
== END 2021-06-22 15:57 | disposition home or self-care (01) ==
LOC: LAB 15:56
PROVIDERS: ATTEND Internal Medicine
DX: M16.0 Bilateral primary osteoarthritis of hip (principal)

== ENCOUNTER 2021-07-05 11:19 | Outpatient (CLI) | payer MEDICARE, OTHER ==
[2021-07-05 12:06] VITALS: BP 144/87
--- NOTE | 2021-07-05 12:06 | SLEEP CARE CONSULTATION ---
Information from patient questionnaire entered by Behzad Mario MA. I have reviewed and concur with the information entered by Behzad Mario MA. This document represents the service I personally performed and the decisions made by , Nae Hughes ARNP. History of Present Illness Service Date and Time: 07/05/2021 1119 Previous diagnosis: Moderate, Obstructive Sleep Apnea-Hypopnea Syndrome AHI: 27.2 Reason for follow up: other (9 MONTH F/U) Equipment type: CPAP Equipment obtained from: Other ([facility]: getting supplies as needed) Mask style: Full face (Dreamwear full face) Mask brand: Respironics Backup mask available: Yes (old mask) Last cushion change: 3+ weeks Year and Where: 2017 [facility] HPI additional information: MADISYN GUALLPA was diagnosed to have moderate, AHI 27.2, obstructive sleep apnea-hypopnea syndrome and returned today with spouse for CPAP therapy 9 month follow-up. 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 denies: aerophagia, mask discomfort, mask leak noise, condensation in mask/hose, nasal congestion, dry mouth, nose, throat, epistaxis, other Observed to snore while using device: No Current pressure setting perceived as: comfortable On therapy, patient: reports: sleeping better, awakening more refreshed, being more awake and alert during the day, more rested overall. denies: drowsiness while driving Initial [place] Sleepiness Scale score: 8 (in 2018) Current [place] Sleepiness Scale score: 7 (2021) Allergies and Home Medications Known drug allergies: Yes (IODINE INFUSED) Drug allergies reviewed: Yes Home medication list reviewed: Yes (no changes) Review of Systems Review of systems same as previous: No (Grave's Opthalmopathy, Arthritis in hips) Physical Exam Vital signs obtained and entered by: Prasanth MARIO CMA AAMA Blood Pressure: 144/87 (LEFT, PULSE 62) Heart Rate: 69 O2 Saturation: 98 (PAPER MASK) Height: 5 ft 2.5 in Weight: 161 lb Body Mass Index: 29.0 BMI Classification: Overweight Impression and Plan 1. Obstructive Sleep Apnea-Hypopnea Syndrome, moderate, with excellent treatment compliance and fair apnea control with mild elevation of residual AHI. On CPAP therapy, the patient has better sleep quality and is more rested overall. Patient has mild elevation of her residual AHI, but her hypopneas are also elevated with an average large leak over an hour and a half. I will not make any pressure changes today. She also has had surgery as well as chronic dry eyes from [facility]'s ophthamology. She did try a eye sleeping mask after our last appointment but had to stop when she had surgery. She still gets some air leaking into her eyes. I advised her to speak to her eye surgeon for recommendations for a more viscous eye moisturizer that she can put in her eyes at night to help with her dry eyes and to protect them from the air from her CPAP. She voiced understanding and agreement. Patient has already registered their device for the recall. Patient denies any black particles seen in machine or hoses, any unusual odors coming from device. Patient has not experienced any physical symptoms such as upper airway irritation, headache, skin or eye irritation, asthma, nausea/vomiting, difficulty breathing or chest pain. If patient is not able to sleep due to waking up choking, gasping for air or other respiratory distress that they may decide to continue using it until it is either replaced or repaired. Patient is continuing to use her device until replaced or repaired. Patient voiced understanding and agreement with plan. Patient's apnea severity and rationale for treatment to reduce apnea, improve sleep quality and reduce cardiovascular and cerebrovascular events was reviewed. I also reviewed the benefit of consistent device use of CPAP for anxiety. Patient was encouraged to lose weight for their overall health and to reduce apneas. * Continue CPAP pressure at 16 cmH2O * Notify me if snoring with mask or feeling that the pressure is too much or too little * Attempt to lose weight * Call this office if any problems using CPAP * Return for follow up in 1 year, or sooner if concerns arise Counseling Topics: Spare mask, Weight loss health impact Visit Type: In Office Time Spent with Patient (minutes): 23 Provider Statement: I spent 100% of the Face to Face Visit with the patient with greater than 50% spent counseling the patient and coordination of care.
== END 2021-07-05 11:20 | disposition home or self-care (01) ==
LOC: SC 11:19
PROVIDERS: ATTEND Nurse Practitioner Family
DX: G47.33 Obstructive sleep apnea (adult) (pediatric) (principal); E66.3 Overweight; Z68.29 Body mass index [BMI] 29.0-29.9, adult
CPT/HCPCS: 99213; G0463; 99212

== ENCOUNTER 2021-08-01 15:26 | Outpatient (CLI) | payer MEDICARE, OTHER ==
--- NOTE | 2021-08-01 21:12 | DEXA Report ---
PROCEDURE: Dexa Spine and/or Hip INDICATIONS: POST MENOPAUSAL TECHNIQUE: Dual energy x-ray absorptiometry (DXA) was performed on a [employer] System. Regions measur ed are the AP Spine, femoral neck, and if needed forearm. COMPARISON: None. FINDINGS: Lumbar Spine: Bone Mineral Density 1.086 g/cm/cm,T score -0.8, no Left Hip: Bone Mineral Density 0.822 g/cm/cm,T score -1.5, mild osteopenia Left Femoral Neck: Bone Mineral Density 0.733 g/cm/cm, T score -2.2, severe osteopenia (T score greater or equal to -1.0: NORMAL) (T score from -1.1 to -2.4: OSTEOPENIA) (T score less than or equal to -2.5 to: OSTEOPOROSIS) Impression: Osteopenia within the left femoral neck and hip as above. Patients with diagnosis of osteoporosis or osteopenia should have regular bone mineral density assess ment. For those eligible for Medicare, routine testing is allowed once every 2 years. Testing frequ ency can be increased for patients who have rapidly progressing disease or for those who are receivin g medical therapy to restore bone mass. Reviewed by: Nery Pascal MD on 08/01/2021 9:11 PM PST Approved by: Nery Pascal MD on 08/01/2021 9:11 PM PST Station ID: [id number]
== END 2021-08-01 15:27 | disposition home or self-care (01) ==
LOC: DI 15:26
PROVIDERS: ATTEND Internal Medicine
DX: M85.89 Other specified disorders of bone density and structure, multiple sites (principal); Z78.0 Asymptomatic menopausal state

== ENCOUNTER 2022-04-10 13:45 | Outpatient (CLI) | payer MEDICARE, OTHER ==
[2022-04-10 14:04] LABS: BASOPHILS # (AUTO) 0.1 10^3/uL (0.0-0.1); BASOPHILS % (AUTO) 1.3 %; EOSINOPHILS # (AUTO) 0.1 10^3/uL (0.0-0.7); EOSINOPHILS % (AUTO) 3.2 %; HCT - HEMATOCRIT 37.2 % (37.0-47.0); LYMPHOCYTES # (AUTO) 1.6 10^3/uL (1.5-3.5); LYMPHOCYTES % (AUTO) 41.6 %; MEAN CORPUSCULAR HEMOGLOBIN 34.4 pg (27.0-31.0); MEAN CORPUSCULAR HGB CONC 34.9 g/dL (32.0-36.0); MEAN CORPUSCULAR VOLUME 98.4 fL (81.0-99.0); MEAN PLATELET VOLUME 10.2 fL (7.9-10.8); MONOCYTES # (AUTO) 0.4 10^3/uL (0.0-1.0); NEUTROPHILS # (AUTO) 1.6 10^3/uL (1.5-6.6); NEUTROPHILS % (AUTO) 42.9 %; PLT - PLATELET COUNT 212 10^3/uL (130-450); RED BLOOD COUNT 3.78 10^6/uL (4.20-5.40); RED CELL DISTRIBUTION WIDTH 13.1 % (12.0-15.0); WHITE BLOOD COUNT 3.7 x10^3/uL (4.8-10.8)
[2022-04-10 14:25] LABS: ALBUMIN 4.2 g/dL (3.2-5.5); BILIRUBIN,DIRECT 0.1 mg/dL (0.1-0.5); BILIRUBIN,TOTAL 0.7 mg/dL (0.2-1.0); TOTAL PROTEIN 6.8 g/dL (6.7-8.2)
== END 2022-04-10 13:46 | disposition home or self-care (01) ==
LOC: LAB 13:45
PROVIDERS: ATTEND Internal Medicine Gastroenterology
DX: E83.110 Hereditary hemochromatosis (principal)
CPT/HCPCS: 36415; 80076; 82728; 85025

== ENCOUNTER 2022-05-22 12:32 | Outpatient (CLI) | payer MEDICARE, OTHER ==
--- NOTE | 2022-05-22 16:19 | XRAY Report ---
PROCEDURE: Foot 3 View BILAT INDICATIONS: BILATERAL FOOT PAIN TECHNIQUE: 3 views of the right foot and left foot were acquired. COMPARISON: None FINDINGS: Bones: No fractures or dislocations. No suspicious bony lesions. Mild right first MTP joint osteoar thritis. Small bilateral plantar calcaneal bone spurs. Soft tissues: No tibiotalar joint effusion. Achilles tendon appears normal. IMPRESSION: No acute osseous lesion. If symptoms and/or clinical concern for pathology persists, further assessme nt with advanced imaging (CT, MR, bone scan) should be considered. Reviewed by: Dary Hill MD, PhD on 05/22/2022 4:18 PM PST Approved by: Dary Hill MD, PhD on 05/22/2022 4:18 PM PST Station ID: [id number]
== END 2022-05-22 12:33 | disposition home or self-care (01) ==
LOC: DI 12:32
PROVIDERS: ATTEND Podiatrist
DX: M19.071 Primary osteoarthritis, right ankle and foot (principal); M77.32 Calcaneal spur, left foot; M77.31 Calcaneal spur, right foot

== ENCOUNTER 2022-08-03 14:22 | Outpatient (CLI) | payer MEDICARE, OTHER ==
[2022-08-03 14:53] VITALS: BP 140/80
--- NOTE | 2022-08-03 14:53 | SLEEP CARE CONSULTATION ---
Information from patient questionnaire entered by Romana Martel. I have reviewed and concur with the information entered by Romana Martel. This document represents the service I personally performed and the decisions made by me, Nae Hughes ARNP. History of Present Illness Service Date and Time: 08/03/2022 1422 Previous diagnosis: Moderate, Obstructive Sleep Apnea-Hypopnea Syndrome AHI: 27.2 Reason for follow up: annual (LAST SEEN 06/2021) Accompanied by: Partner Equipment type: CPAP (Dreamstation 2) Equipment obtained from: Other ([facility]; getting supplies) Mask style: Full face (Dreamwear full face) Mask brand: Respironics Backup mask available: Yes (old mask) Last cushion change: 3+ weeks Prior sleep studies: Yes Year and Where: 2017 [facility] HPI additional information: MADISYN GUALLPA was diagnosed to have moderate, AHI 27.2, obstructive sleep apnea-hypopnea syndrome and returned with partner today for CPAP therapy annual follow-up. Sleep Study - Results Year and Where: 2017 [facility] CPAP Compliance Data - Data Reviewed with Patient Average duration of nightly device use: 7 HRS 39 MIN 24SEC Compliance rate %: 70.6 (02/02/22-07/31/22; 127/180 days used) Current pressure setting (cmH2O): 16 Average residual AHI: 4.9 Central apnea: 0.9 Obstructive apnea: 2.4 Hypopnea: 1.6 Average large leak: 10 mins 50 secs Subjective Missed days of use due to: reports: other (was using other CPAP before getting her new DS2) Patient concerns: reports: dry mouth, nose, throat (occasional, not often). denies: aerophagia, mask discomfort, air blowing in eyes, mask leak noise, condensation in mask/hose, nasal congestion, epistaxis Observed to snore while using device: No Current pressure setting perceived as: comfortable On therapy, patient: reports: sleeping better, awakening more refreshed, being more awake and alert during the day, more rested overall. denies: drowsiness while driving Initial Chapman Sleepiness Scale score: 8 (in 2018) Current Chapman Sleepiness Scale score: 5 (08/03/22) Allergies and Home Medications Known drug allergies: Yes (iodine, shellfish derived, codeine, metronidazole, tetracycline) Drug allergies reviewed: Yes Home medication list reviewed: Yes (no changes) Review of Systems Review of systems same as previous: Yes (no changes) Physical Exam Vital signs obtained and entered by: ROMANA Perez MA Blood Pressure: 140/80 (LEFT ARM) Cuff size: regular Heart Rate: 62 O2 Saturation: 95 Height: 5 ft 2.5 in Weight: 162 lb 3.2 oz Body Mass Index: 29.2 BMI Classification: Overweight Impression and Plan 1. Obstructive Sleep Apnea-Hypopnea Syndrome, moderate, with good treatment compliance and good apnea control. On CPAP therapy, the patient has better sleep quality and is more rested overall. Patient has significant improvement of their sleep apnea and is satisfied with current CPAP therapy. Her AHI has improved with the new Dreamstation 2. She does get a little dry mouth occasionally but states it is not a problem. I looked at her settings and her heated hose was at 4 and her humidity was at 4 too. I reduced the heated hose to 3 to see if this would improve her oral dryness at patient's request. Patient's apnea severity and rationale for treatment to reduce apnea, improve sleep quality and reduce cardiovascular and cerebrovascular events was reviewed. I also reviewed the benefit of consistent device use of CPAP for anxiety. 2. Overweight, unspecified. Currently patients BMI is 29.2. Obesity increases the risk of apnea, CPAP pressure requirements and overall health risks especially cardiovascular and diabetes. Thus patient is advised to lose weight. * Continue CPAP pressure at 16 cmH2O * Update supplies * Notify me if snoring with mask or feeling that the pressure is too much or too little * Attempt to lose weight * Call this office if any problems using CPAP * Return for follow up in 1 year, or sooner if concerns arise Counseling Topics: Spare mask, Weight loss health impact Prescriptions: Device supplies Visit Type: In Office Other Participants: Spouse/Significant Other Time Spent with Patient (minutes): 20 Provider Statement: I spent 100% of the Face to Face Visit with the patient with greater than 50% spent counseling the patient and coordination of care.
== END 2022-08-03 14:23 | disposition home or self-care (01) ==
LOC: SC 14:22
PROVIDERS: ATTEND Nurse Practitioner Family
DX: G47.33 Obstructive sleep apnea (adult) (pediatric) (principal); E66.3 Overweight; Z68.29 Body mass index [BMI] 29.0-29.9, adult
CPT/HCPCS: 99213; G0463; 99212

== ENCOUNTER 2023-02-07 14:11 | Outpatient (CLI) | payer MEDICARE, OTHER ==
[2023-02-07 14:54] LABS: ALBUMIN 4.2 g/dL (3.2-5.5); ALKALINE PHOSPHATASE 65 IU/L (42-121); ALT ALANINE AMINOTRANSFERASE 18 IU/L (10-60); AST ASPARTATE AMINOTRANSFERASE 21 IU/L (10-42); BILIRUBIN,DIRECT < 0.10 mg/dL (0.03-0.18); BILIRUBIN,TOTAL 0.4 mg/dL (0.2-1.0); TOTAL PROTEIN 6.8 g/dL (6.4-8.9)
[2023-02-07 15:14] LABS: FERRITIN 68.6 ng/mL (11.0-306.8)
[2023-02-08 04:08] LABS: HBsAG SCREEN Negative (Negative); HEPATITIS A TOTAL AB Negative (Negative); HEPATITIS B SURFACE AB QUANT <3.1 mIU/mL (Immunity>9.9)
== END 2023-02-07 14:12 | disposition home or self-care (01) ==
LOC: LAB 14:11
PROVIDERS: ATTEND Internal Medicine Gastroenterology
DX: E83.110 Hereditary hemochromatosis (principal)
CPT/HCPCS: 36415; 80076; 82728; 86317; 86704; 86708; 87340